=== PATIENT | female | born 1935 | race Caucasian/White ===

== ENCOUNTER 2017-05-12 15:10 | Inpatient (IN) | payer OTHER ==
[~2017-05-12] VITALS: Ht 154.9 cm; Wt 54.4 kg
[~2017-05-12 15:10] MED LIST: ATENOLOL50 MG PO; ATORVASTATIN CA20 MG PO; COMBIGAN EYE DRO5 ML; ESIDRIX25 MG PO; FISH OIL PO; LISINOPRIL PO; METFORMIN HCL500 MG PO; MULTIVITAMIN PO; PLAVIX75 MG PO; SIMVASTATIN40 MG PO; ZOLPIDEM TARTRA10 MG PO; latanoprost; plavix
[2017-05-12] MEDS ORDERED: SODIUM CHLORIDE 0.9% 1000ML 2,000 ML IV STA (15:28)
[2017-05-12] MEDS ORDERED: ONDANSETRON HCL INJ 2 MG/ML VIAL IV STA (15:28)
[2017-05-12] MEDS ORDERED: LISINOPRIL2.5 MG PO (15:41)
[2017-05-12] MEDS ORDERED: ZETIA10 MG PO (15:41)
[2017-05-12] MEDS ORDERED: ESIDRIX25 MG PO (15:41)
[2017-05-12] MEDS ORDERED: GLIMEPIRIDE1 MG PO (15:41)
[2017-05-12] MEDS ORDERED: NIFEDIPINE ER30 M1 PO (15:41)
[2017-05-12] MEDS ORDERED: PANTOPRAZOLE SO40 MG PO (15:41)
[2017-05-12 16:12] LABS: BASOPHILS % 0.1 % (0.0-1.0); LYMPHOCYTES # (AUTO) 0.9 (1.0-3.2); LYMPHOCYTES % 8.5 % (18.0-39.1); MEAN CORPUSCULAR HEMOGLOBIN 25.2 pg (28-32); MEAN CORPUSCULAR HGB CONC 31.7 g/dL (31-35); MEAN CORPUSCULAR VOLUME 79.7 fL (81-99); MONOCYTES # (AUTO) 0.5 (0.2-0.8); MONOCYTES % 4.7 % (4.4-11.3); NEUTROPHILS # (AUTO) 8.8 (2.1-6.9); NEUTROPHILS % 86.2 % (38.7-80.0); PLATELET COUNT 401 x10e3/uL (140-360); RED BLOOD COUNT 2.02 x10e6/uL (3.6-5.1); RED CELL DISTRIBUTION WIDTH 16.9 % (11.7-14.4)
[2017-05-12 16:15] LABS: HEMATOCRIT 16.1 % (34.2-44.1); HEMOGLOBIN 5.1 g/dL (12.0-16.0)
[2017-05-12 16:19] LABS: INR 0.99; PROTHROMBIN TIME 13.6 seconds (11.9-14.5)
[2017-05-12] MEDS ORDERED: SODIUM CHLORIDE 0.9% 250ML 250 ML IV ONE (16:30)
[2017-05-12 16:34] LABS: ALBUMIN 3.2 g/dL (3.5-5.0); ALBUMIN/GLOBULIN RATIO 1.3 (0.8-2.0); ANION GAP 15.3 mmol/L (8-16); CALCIUM 8.2 mg/dL (8.4-10.2); CREATININE, SERUM 2.08 mg/dL (0.57-1.11); POTASSIUM 3.3 mmol/L (3.5-5.1)
[2017-05-12] MEDS ORDERED: OCTREOTIDE ACETATE 500 MCG in SODIUM CHLORIDE 0.9% 500ML 1 ML IV SCH (17:00)
--- NOTE | 2017-05-12 17:14 | Diagnostic Imaging Report ---
PROCEDURE: A single AP view of the chest. COMPARISON: 02/10/16 INDICATIONS: COUGH, GI BLEED FINDINGS: Lines/tubes: None. Lungs: Hyperinflated lungs with flattening of the diaphragms. Central vascular congestion and mild interstitial edema. Pleura: There is no significant pleural effusion or pneumothorax. Aorta is calcified. Heart and mediastinum: The heart and the mediastinum are unremarkable. Bones: No acute bony abnormality. IMPRESSION: Hyperinflated lungs with flattening of the diaphragms, suggestive of COPD. Central vascular congestion and mild interstitial edema. No definite focal consolation. Dictated by: Steven Mcgowan M.D. on 05/12/2017 at 17:23 Electronically approved by: Steven Mcgowan M.D. on 05/12/2017 at 17:23
[2017-05-12] MEDS: PANTOPRAZOL 40MG/SOD CHL 0.9% 50 ML IV SCH (18:00)
[2017-05-12] MEDS: OCTREOTIDE ACETATE 500 MCG in SODIUM CHLORIDE 0.9% 250ML 250 ML IV SCH (18:13)
[2017-05-12] MEDS: FUROSEMIDE INJ 10 MG/ML 4 ML VIAL IV PRN ×2 (19:40→22:16)
[2017-05-12] MEDS ORDERED: SODIUM CHLORIDE 0.9% 250ML 250 ML ONE (19:48)
[2017-05-13] VITALS (55 sets, daily range): BP systolic 118–185; BP diastolic 54–111
[2017-05-13] MEDS: FUROSEMIDE INJ 10 MG/ML 4 ML VIAL IV PRN (01:00)
[2017-05-13] MEDS: PANTOPRAZOL 40MG/SOD CHL 0.9% 50 ML IV SCH ×5 (01:36→18:04)
[2017-05-13] MEDS: SODIUM CHLORIDE 0.9% 1000ML 1,000 ML IV SCH ×5 (01:36→23:44)
[2017-05-13] MEDS: OCTREOTIDE ACETATE 500 MCG in SODIUM CHLORIDE 0.9% 250ML 250 ML IV SCH (03:53)
[2017-05-13] MEDS: LABETALOL HCL IV 5 MG/ML 20ML MDV IV SCH ×3 (05:36→18:04)
[2017-05-13] MEDS: ACETAMINOPHEN 1000 MG/100 ML IV PRN ×2 (05:37→12:18)
[2017-05-13 06:00] LABS: BASOPHILS % 0.4 % (0.0-1.0); EOSINOPHILS % 0.1 % (0.0-6.0); HEMATOCRIT 31.6 % (34.2-44.1); HEMOGLOBIN 10.8 g/dL (12.0-16.0); LYMPHOCYTES # (AUTO) 0.8 (1.0-3.2); LYMPHOCYTES % 11.6 % (18.0-39.1); MEAN CORPUSCULAR HEMOGLOBIN 26.8 pg (28-32); MEAN CORPUSCULAR HGB CONC 34.2 g/dL (31-35); MEAN CORPUSCULAR VOLUME 78.4 fL (81-99); MONOCYTES # (AUTO) 0.5 (0.2-0.8); MONOCYTES % 7.3 % (4.4-11.3); NEUTROPHILS # (AUTO) 5.7 (2.1-6.9); NEUTROPHILS % 80.2 % (38.7-80.0); PLATELET COUNT 328 x10e3/uL (140-360); RED BLOOD COUNT 4.03 x10e6/uL (3.6-5.1); RED CELL DISTRIBUTION WIDTH 16.5 % (11.7-14.4)
[2017-05-13 06:24] LABS: ALBUMIN 3.5 g/dL (3.5-5.0); ALBUMIN/GLOBULIN RATIO 1.3 (0.8-2.0); ANION GAP 15.1 mmol/L (8-16); CALCIUM 8.4 mg/dL (8.4-10.2); CREATININE, SERUM 1.78 mg/dL (0.57-1.11); POTASSIUM 3.1 mmol/L (3.5-5.1)
[2017-05-13 06:33] LABS: CREATINE KINASE MB 4.5 ng/mL (0.00-5.00)
--- NOTE | 2017-05-13 06:55 | Consultation ---
DATE OF CONSULTATION: May 13, 2017 This is an 82 year old who presented to the hospital last night because of problems with bleeding with black tarry stool. The patient denies any abdominal pain along with this problem. She denies any nausea, vomiting or diarrhea along with this problem also. She apparently had some episodes a long time ago, and had colonoscopy at the time. She denies any history of ulcer disease. Other medical problems are significant for history of peripheral vascular disease for which she has been on anticoagulation with Plavix. Also, history of hypertension, history of diabetes. MEDICATIONS: At home include Plavix, Zetia, glimepiride, hydrochlorothiazide, lisinopril, nifedipine, Pantoprazole. SOCIAL HISTORY: No alcohol use. FAMILY HISTORY: Noncontributory. REVIEW OF SYSTEMS: Denies any chest pain or shortness of breath. Denies any dysphagia or odynophagia. Denies any dysuria, hematuria or any kind of syncopal episode. PHYSICAL EXAMINATION GENERAL: Patient is awake, alert and appears to be stable. Not in acute distress at this point. VITAL SIGNS: Afebrile currently with stable vital signs. HEENT: Normocephalic. Anicteric sclerae. NECK: Supple. Alert times 3. CHEST: Lungs clear. ABDOMEN: Soft. There is no distention at this point. It is nontender. EXTREMITIES: No clubbing or cyanosis. LAB VALUES: Significant for hemoglobin of 5.1 on admission. This is up to 10.8. WBC of 7.1. BUN of 38, creatinine 2.08 on admission. IMPRESSION 1. Gastrointestinal bleed with black tarry stool and significant anemia. 2. History of peripheral vascular disease. 3. History of diabetes. 4. History of hypertension. RECOMMENDATIONS: Continue current care this point. Proton pump inhibitor and rosuvastatin. We will proceed with EGD for further evaluation today. Follow labs clinically. Job#: [id number] RI cc:RADHA THORNTON MD
[2017-05-13] MEDS ORDERED: ZOLPIDEM TARTRATE 5 MG TAB PO PRN (09:00)
[2017-05-13 14:32] LABS: CREATINE KINASE MB 3.3 ng/mL (0.00-5.00)
[2017-05-13 15:20] LABS: HEMATOCRIT 27.5 % (34.2-44.1); HEMOGLOBIN 9.3 g/dL (12.0-16.0)
[2017-05-13] MEDS ORDERED: PROPOFOL IV EMULSION 10 MG/ML 50 ML VIAL ONE (19:53)
[2017-05-13] MEDS ORDERED: LIDOCAINE HCL 2% LOCAL INJ 5 ML SDV VIAL INJ ONE (19:53)
[2017-05-13] MEDS: TEMAZEPAM 15 MG CAP PO SCH (21:01)
[2017-05-13 22:36] LABS: HEMATOCRIT 27.5 % (34.2-44.1); HEMOGLOBIN 9.2 g/dL (12.0-16.0)
[2017-05-14] VITALS (44 sets, daily range): BP systolic 106–192; BP diastolic 59–97
[2017-05-14] MEDS ORDERED: PANTOPRAZOL 40MG/SOD CHL 0.9% 50 ML IV ONE ×2 (00:10→03:56)
[2017-05-14] MEDS: LABETALOL HCL IV 5 MG/ML 20ML MDV IV SCH ×4 (00:23→18:00)
[2017-05-14] MEDS: PANTOPRAZOL 40MG/SOD CHL 0.9% 50 ML IV SCH (00:27)
[2017-05-14 06:09] LABS: BASOPHILS % 0.7 % (0.0-1.0); EOSINOPHILS # (AUTO) 0.2 (0.0-0.4); HEMATOCRIT 27.4 % (34.2-44.1); HEMOGLOBIN 8.9 g/dL (12.0-16.0); LYMPHOCYTES # (AUTO) 0.9 (1.0-3.2); LYMPHOCYTES % 14.1 % (18.0-39.1); MEAN CORPUSCULAR HEMOGLOBIN 26.5 pg (28-32); MEAN CORPUSCULAR HGB CONC 32.5 g/dL (31-35); MEAN CORPUSCULAR VOLUME 81.5 fL (81-99); MONOCYTES # (AUTO) 0.5 (0.2-0.8); MONOCYTES % 7.4 % (4.4-11.3); NEUTROPHILS # (AUTO) 4.5 (2.1-6.9); NEUTROPHILS % 74.5 % (38.7-80.0); PLATELET COUNT 300 x10e3/uL (140-360); RED BLOOD COUNT 3.36 x10e6/uL (3.6-5.1)
[2017-05-14] MEDS ORDERED: BISACODYL 5 MG TAB EC PO ONE (08:15)
[2017-05-14] MEDS ORDERED: PEG (High)/E-LYTE SOLN 4,000 ML BTL PO ONE (08:15)
[2017-05-14] MEDS ORDERED: DEXTROSE 50% SYRINGE 50 ML IV PRN (08:45)
[2017-05-14] MEDS: SODIUM CHLORIDE 0.9% 1000ML 1,000 ML IV SCH ×2 (08:48→19:53)
[2017-05-14] MEDS: PANTOPRAZOLE 40 MG 10ML VIAL IV SCH ×2 (09:00→17:08)
--- NOTE | 2017-05-14 09:10 | History and Physical ---
PRIMARY CARE PROVIDER: Dr. Ankit Yoder YARD HOSTLER: Dr. Ten Puga CHIEF COMPLAINT: Acute blood loss anemia with blood transfusion. An 82-year-old female who came to the hospital severely anemic and increasing shortness of breath. Her hemoglobin and hematocrit was 5.1 and 16.1 respectively. The patient is status post 3 units of blood transfusion. She underwent upper endoscopy. Findings revealed gastritis. There was no acute bleeding. The patient is pending for colonoscopy. She is otherwise stable. PAST MEDICAL HISTORY: Hypertension, peripheral vascular disease, status post left BKA, reflux, on Plavix, hyperlipidemia, diabetes, type 2. PAST SURGICAL HISTORY: Left BKA, right carotid endarterectomy, history of hemorrhoidectomy, appendectomy. SOCIAL HISTORY: Patient does not smoke or use alcohol. No regular drugs. ALLERGIES: NO KNOWN ALLERGIES. HOME MEDICATIONS: Plavix, Zetia, hydrochlorothiazide, lisinopril, nifedipine, Protonix, Amaryl. REVIEW OF SYSTEMS: Generalized weakness. PHYSICAL EXAMINATION VITAL SIGNS: Temperature is 98, blood pressure 144/65, pulse rate 70, respirations 18. GENERAL: Patient is not in acute distress. HEENT: Normocephalic, atraumatic and anicteric. NECK: Supple grossly. PULMONARY: Diminished breath sounds. CARDIOVASCULAR: Regular rate and rhythm. ABDOMEN: Soft. EXTREMITIES: Left BKA. NEUROLOGIC: No focal deficit. LABORATORY: Sodium 137, potassium 3.1, chloride 99, bicarb 26, BUN 31, creatinine 1.7, glucose 124. WBC 6, hemoglobin 8.9, hematocrit 27, and platelets is 300,000. IMPRESSION 1. Idafj-zz-bqldypu gastrointestinal bleed. 2. Symptomatic anemia. 3. Status post blood transfusion. 4. Fecal occult blood is positive. PLAN: EGD done. Colonoscopy is pending. Continue to monitor the patient closely. Correct electrolytes. The patient will need iron infusion. Job#: [id number] TOMASZ
[2017-05-14] MEDS: HYDRALAZINE HCL 20 MG/ML VIAL IV PRN (10:12)
[2017-05-14] MEDS: INSULIN LISPRO 100 UNIT/1 ML 3ML VIAL SQ SCH ×3 (11:30→20:47)
[2017-05-14 12:52] LABS: HEMATOCRIT 30.4 % (34.2-44.1)
[2017-05-14 18:08] LABS: HEMATOCRIT 27.8 % (34.2-44.1); HEMOGLOBIN 9.2 g/dL (12.0-16.0)
[2017-05-14] MEDS: TEMAZEPAM 15 MG CAP PO SCH (23:24)
[2017-05-15] VITALS (8 sets, daily range): BP systolic 136–173; BP diastolic 61–79
[2017-05-15 00:41] LABS: HEMATOCRIT 24.1 % (34.2-44.1)
[2017-05-15] MEDS: LABETALOL HCL IV 5 MG/ML 20ML MDV IV SCH ×4 (01:02→17:19)
[2017-05-15] MEDS: INSULIN LISPRO 100 UNIT/1 ML 3ML VIAL SQ SCH ×4 (07:30→21:59)
[2017-05-15 07:31] LABS: BASOPHILS % 0.5 % (0.0-1.0); EOSINOPHILS # (AUTO) 0.2 (0.0-0.4); EOSINOPHILS % 3.3 % (0.0-6.0); HEMATOCRIT 25.9 % (34.2-44.1); HEMOGLOBIN 8.5 g/dL (12.0-16.0); LYMPHOCYTES # (AUTO) 0.9 (1.0-3.2); LYMPHOCYTES % 13.7 % (18.0-39.1); MEAN CORPUSCULAR HGB CONC 32.8 g/dL (31-35); MEAN CORPUSCULAR VOLUME 82.2 fL (81-99); MONOCYTES # (AUTO) 0.4 (0.2-0.8); MONOCYTES % 6.8 % (4.4-11.3); NEUTROPHILS # (AUTO) 4.8 (2.1-6.9); NEUTROPHILS % 74.9 % (38.7-80.0); PLATELET COUNT 289 x10e3/uL (140-360); RED BLOOD COUNT 3.15 x10e6/uL (3.6-5.1); RED CELL DISTRIBUTION WIDTH 17.5 % (11.7-14.4)
[2017-05-15 07:46] LABS: ANION GAP 10.8 mmol/L (8-16); CALCIUM 7.5 mg/dL (8.4-10.2); CREATININE, SERUM 1.01 mg/dL (0.57-1.11); MAGNESIUM 1.2 MG/DL (1.3-2.1); PHOSPHORUS 2.4 MG/DL (2.3-4.7)
[2017-05-15 07:48] LABS: POTASSIUM 2.8 mmol/L (3.5-5.1)
[2017-05-15 08:06] LABS: THYROID STIMULATING HORMONE 1.719 uIU/mL (0.350-4.940)
[2017-05-15] MEDS ORDERED: SOD CHL 0.45%/POT CHL 20MEQ 1,000 ML IV SCH (08:45)
[2017-05-15] MEDS ORDERED: POTASSIUM CHLORIDE 10 MEQ TABCR PO ONE (08:45)
[2017-05-15] MEDS: PANTOPRAZOLE 40 MG 10ML VIAL IV SCH ×2 (08:58→17:19)
[2017-05-15] MEDS: HYDRALAZINE HCL 20 MG/ML VIAL IV PRN (08:59)
[2017-05-15] MEDS: POTASSIUM CHL 40 MEQ in SODIUM CHLORIDE 0.45% 1,000 ML IV SCH ×2 (10:23→19:27)
[2017-05-15 12:20] LABS: HEMATOCRIT 27.8 % (34.2-44.1); HEMOGLOBIN 9.1 g/dL (12.0-16.0)
[2017-05-15 12:35] LABS: ANION GAP 15.5 mmol/L (8-16); CALCIUM 7.8 mg/dL (8.4-10.2); CREATININE, SERUM 0.98 mg/dL (0.57-1.11); POTASSIUM 3.5 mmol/L (3.5-5.1)
[2017-05-15] MEDS ORDERED: MINERAL OIL 132 ML BTL PR PRN (12:45)
[2017-05-15] MEDS ORDERED: MAGNESIUM SULFATE 2GM/50ML 50 ML IV ONE (13:30)
[2017-05-15] MEDS ORDERED: PROPOFOL IV EMULSION 10 MG/ML 20 ML VIAL ONE (18:13)
[2017-05-15] MEDS: TEMAZEPAM 15 MG CAP PO SCH (21:53)
[2017-05-15 22:35] LABS: HEMATOCRIT 25.7 % (34.2-44.1); HEMOGLOBIN 8.4 g/dL (12.0-16.0)
[2017-05-16] VITALS (8 sets, daily range): BP systolic 149–186; BP diastolic 72–98
[2017-05-16] MEDS: LABETALOL HCL IV 5 MG/ML 20ML MDV IV SCH ×3 (00:58→12:52)
[2017-05-16] MEDS: POTASSIUM CHL 40 MEQ in SODIUM CHLORIDE 0.45% 1,000 ML IV SCH (05:39)
[2017-05-16] MEDS: INSULIN LISPRO 100 UNIT/1 ML 3ML VIAL SQ SCH ×4 (07:30→21:50)
[2017-05-16 07:50] LABS: BASOPHILS % 0.3 % (0.0-1.0); EOSINOPHILS # (AUTO) 0.3 (0.0-0.4); EOSINOPHILS % 3.1 % (0.0-6.0); HEMATOCRIT 28.4 % (34.2-44.1); HEMOGLOBIN 9.3 g/dL (12.0-16.0); LYMPHOCYTES # (AUTO) 0.7 (1.0-3.2); LYMPHOCYTES % 6.8 % (18.0-39.1); MEAN CORPUSCULAR HGB CONC 32.7 g/dL (31-35); MEAN CORPUSCULAR VOLUME 82.3 fL (81-99); MONOCYTES # (AUTO) 0.4 (0.2-0.8); MONOCYTES % 4.6 % (4.4-11.3); NEUTROPHILS # (AUTO) 8.2 (2.1-6.9); NEUTROPHILS % 84.7 % (38.7-80.0); PLATELET COUNT 320 x10e3/uL (140-360); RED BLOOD COUNT 3.45 x10e6/uL (3.6-5.1); RED CELL DISTRIBUTION WIDTH 17.6 % (11.7-14.4)
[2017-05-16 08:20] LABS: ANION GAP 12.9 mmol/L (8-16); CALCIUM 8.3 mg/dL (8.4-10.2); CREATININE, SERUM 1.1 mg/dL (0.57-1.11); MAGNESIUM 1.6 MG/DL (1.3-2.1); PHOSPHORUS 2.8 MG/DL (2.3-4.7); POTASSIUM 3.9 mmol/L (3.5-5.1)
[2017-05-16] MEDS: PANTOPRAZOLE 40 MG 10ML VIAL IV SCH (08:52)
[2017-05-16] MEDS: HYDRALAZINE HCL 20 MG/ML VIAL IV PRN ×2 (09:01→21:49)
[2017-05-16] MEDS ORDERED: POTASSIUM CHLORIDE 20 MEQ TAB CR PO STA (09:04)
[2017-05-16] MEDS ORDERED: FUROSEMIDE INJ 10 MG/ML 4 ML VIAL IV STA (09:04)
[2017-05-16] MEDS ORDERED: FUROSEMIDE INJ 10 MG/ML 4 ML VIAL IV NR (15:30)
[2017-05-16] MEDS: SUCRALFATE 1 GM/10 ML SUSP NG SCH ×3 (16:09→21:44)
[2017-05-16] MEDS ORDERED: POTASSIUM CHLORIDE 10 MEQ TABCR PO NR (16:30)
[2017-05-16] MEDS: TEMAZEPAM 15 MG CAP PO SCH (21:44)
[2017-05-17] VITALS (9 sets, daily range): BP systolic 115–184; BP diastolic 56–89
[2017-05-17] MEDS: INSULIN LISPRO 100 UNIT/1 ML 3ML VIAL SQ SCH ×4 (07:30→21:00)
[2017-05-17] MEDS: SUCRALFATE 1 GM/10 ML SUSP NG SCH ×3 (07:36→16:12)
[2017-05-17] MEDS: PANTOPRAZOLE SOD 40 MG TABEC PO SCH (07:36)
[2017-05-17] MEDS: HYDRALAZINE HCL 20 MG/ML VIAL IV PRN (08:10)
[2017-05-17 08:18] LABS: BASOPHILS % 0.3 % (0.0-1.0); EOSINOPHILS # (AUTO) 0.4 (0.0-0.4); EOSINOPHILS % 4.8 % (0.0-6.0); HEMATOCRIT 30.5 % (34.2-44.1); HEMOGLOBIN 9.9 g/dL (12.0-16.0); LYMPHOCYTES # (AUTO) 0.9 (1.0-3.2); LYMPHOCYTES % 11.6 % (18.0-39.1); MEAN CORPUSCULAR HEMOGLOBIN 26.8 pg (28-32); MEAN CORPUSCULAR HGB CONC 32.5 g/dL (31-35); MEAN CORPUSCULAR VOLUME 82.4 fL (81-99); MONOCYTES # (AUTO) 0.5 (0.2-0.8); MONOCYTES % 6.9 % (4.4-11.3); NEUTROPHILS # (AUTO) 5.7 (2.1-6.9); PLATELET COUNT 375 x10e3/uL (140-360); RED CELL DISTRIBUTION WIDTH 17.8 % (11.7-14.4)
[2017-05-17 08:39] LABS: ANION GAP 10.9 mmol/L (8-16); CALCIUM 8.6 mg/dL (8.4-10.2); CREATININE, SERUM 1.25 mg/dL (0.57-1.11); POTASSIUM 3.9 mmol/L (3.5-5.1)
[2017-05-17] MEDS ORDERED: POTASSIUM CHLORIDE 20 MEQ TAB CR PO SCH (09:00)
[2017-05-17] MEDS: POTASSIUM CHLORIDE 10 MEQ TABCR PO SCH (09:47)
[2017-05-17] MEDS: FUROSEMIDE 40 MG TAB PO SCH (09:47)
[2017-05-17] MEDS: LEVALBUTEROL HCL SOLN NEBU 1.25 MG/3 ML NEB INH PRN ×3 (11:00→19:30)
--- NOTE | 2017-05-17 11:11 | Diagnostic Imaging Report ---
EXAMINATION: Chest, CHEST SINGLE (PORTABLE) INDICATION: Chest pain COMPARISON: Portable chest 05/12/2017 FINDINGS: LINES: None. Heart: Normal cardiac silhouette. Vascular: The pulmonary vasculature is within normal limits. Atherosclerotic calcifications of the aortic arch. Mediastinum: No mediastinal, hilar, or axillary mass or lymphadenopathy. Lungs: No parenchymal mass. No focal consolidation. The lungs are hyperexpanded bilaterally. Pleura: Small bilateral pleural effusions. No pneumothorax. Bones: No acute osseous abnormality. Degenerative changes of the thoracic spine. Soft tissues: Normal. Impression: Small bilateral pleural effusions. Emphysematous changes. Signed by: Dr. Paresh Rae M.D. on 05/17/2017 11:08 AM
[2017-05-17] MEDS: NIFEDIPINE CR 30 MG TAB PO SCH (12:32)
[2017-05-17] MEDS: PREDNISONE 20 MG TAB PO SCH (12:33)
[2017-05-17] MEDS: FUROSEMIDE INJ 10 MG/ML 4 ML VIAL IV SCH ×2 (14:31→21:29)
[2017-05-17] MEDS: SUCRALFATE 1 GM/10 ML SUSP PO SCH ×2 (19:12→21:29)
[2017-05-17] MEDS: EZETIMIBE 10 MG TAB PO SCH (21:29)
[2017-05-17] MEDS: TEMAZEPAM 15 MG CAP PO SCH (21:29)
[2017-05-18] VITALS: BP 124/58
[2017-05-18 04:00] VITALS: BP 142/69
[2017-05-18] MEDS: FUROSEMIDE INJ 10 MG/ML 4 ML VIAL IV SCH (05:57)
[2017-05-18 06:10] LABS: BASOPHILS % 0.3 % (0.0-1.0); EOSINOPHILS % 0.3 % (0.0-6.0); HEMATOCRIT 29.5 % (34.2-44.1); HEMOGLOBIN 9.7 g/dL (12.0-16.0); LYMPHOCYTES # (AUTO) 0.9 (1.0-3.2); LYMPHOCYTES % 12.5 % (18.0-39.1); MEAN CORPUSCULAR HEMOGLOBIN 26.6 pg (28-32); MEAN CORPUSCULAR HGB CONC 32.9 g/dL (31-35); MONOCYTES # (AUTO) 0.6 (0.2-0.8); MONOCYTES % 8.7 % (4.4-11.3); NEUTROPHILS # (AUTO) 5.5 (2.1-6.9); NEUTROPHILS % 77.8 % (38.7-80.0); PLATELET COUNT 352 x10e3/uL (140-360); RED BLOOD COUNT 3.64 x10e6/uL (3.6-5.1); RED CELL DISTRIBUTION WIDTH 17.9 % (11.7-14.4)
[2017-05-18 06:37] LABS: ANION GAP 13.2 mmol/L (8-16); CALCIUM 8.6 mg/dL (8.4-10.2); CREATININE, SERUM 1.46 mg/dL (0.57-1.11); MAGNESIUM 1.2 MG/DL (1.3-2.1); POTASSIUM 3.2 mmol/L (3.5-5.1)
[2017-05-18] MEDS: INSULIN LISPRO 100 UNIT/1 ML 3ML VIAL SQ SCH ×4 (07:30→20:26)
[2017-05-18 08:00] VITALS: BP 112/75
[2017-05-18] MEDS: PREDNISONE 20 MG TAB PO SCH (08:26)
[2017-05-18] MEDS: SUCRALFATE 1 GM/10 ML SUSP PO SCH ×4 (08:26→20:26)
[2017-05-18] MEDS: FUROSEMIDE 40 MG TAB PO SCH ×2 (08:26→15:43)
[2017-05-18] MEDS: POTASSIUM CHLORIDE 10 MEQ TABCR PO SCH (08:26)
[2017-05-18] MEDS: PANTOPRAZOLE SOD 40 MG TABEC PO SCH (08:26)
[2017-05-18] MEDS: NIFEDIPINE CR 30 MG TAB PO SCH (09:00)
[2017-05-18] MEDS ORDERED: MAGNESIUM SULFATE 2GM/50ML 50 ML IV ONE (11:00)
[2017-05-18] MEDS ORDERED: POTASSIUM CHLORIDE 10 MEQ TABCR PO ONE (11:15)
[2017-05-18 12:00] VITALS: BP 140/81
[2017-05-18 16:00] VITALS: BP 108/70
[2017-05-18 20:00] VITALS: BP 132/77
[2017-05-18] MEDS: TEMAZEPAM 15 MG CAP PO SCH (20:26)
[2017-05-18] MEDS: EZETIMIBE 10 MG TAB PO SCH (20:26)
[2017-05-19] VITALS: BP 141/78
[2017-05-19 04:00] VITALS: BP 144/86
[2017-05-19 07:05] LABS: BASOPHILS % 0.4 % (0.0-1.0); EOSINOPHILS # (AUTO) 0.1 (0.0-0.4); EOSINOPHILS % 0.8 % (0.0-6.0); HEMOGLOBIN 10.2 g/dL (12.0-16.0); LYMPHOCYTES # (AUTO) 1.2 (1.0-3.2); LYMPHOCYTES % 10.5 % (18.0-39.1); MEAN CORPUSCULAR HEMOGLOBIN 26.8 pg (28-32); MEAN CORPUSCULAR HGB CONC 32.9 g/dL (31-35); MEAN CORPUSCULAR VOLUME 81.6 fL (81-99); MONOCYTES # (AUTO) 0.9 (0.2-0.8); NEUTROPHILS # (AUTO) 8.8 (2.1-6.9); NEUTROPHILS % 79.6 % (38.7-80.0); PLATELET COUNT 363 x10e3/uL (140-360)
[2017-05-19 07:29] LABS: ANION GAP 14.1 mmol/L (8-16); CALCIUM 9.1 mg/dL (8.4-10.2); CREATININE, SERUM 1.46 mg/dL (0.57-1.11); MAGNESIUM 1.7 MG/DL (1.3-2.1); POTASSIUM 3.1 mmol/L (3.5-5.1)
[2017-05-19 07:30] VITALS: BP 140/64
[2017-05-19] MEDS: INSULIN LISPRO 100 UNIT/1 ML 3ML VIAL SQ SCH ×2 (07:30→11:30)
[2017-05-19] MEDS: SUCRALFATE 1 GM/10 ML SUSP PO SCH ×2 (07:59→11:40)
[2017-05-19] MEDS: PANTOPRAZOLE SOD 40 MG TABEC PO SCH (07:59)
[2017-05-19 08:00] VITALS: BP 140/64
[2017-05-19] MEDS: POTASSIUM CHLORIDE 10 MEQ TABCR PO SCH (09:22)
[2017-05-19] MEDS: PREDNISONE 20 MG TAB PO SCH (09:23)
[2017-05-19] MEDS: FUROSEMIDE 40 MG TAB PO SCH (09:23)
[2017-05-19] MEDS: NIFEDIPINE CR 30 MG TAB PO SCH (09:23)
[2017-05-19] MEDS ORDERED: POTASSIUM CHLORIDE 20 MEQ TAB CR PO ONE (11:50)
[2017-05-19 12:00] VITALS: BP 142/81
--- NOTE | 2017-05-19 12:10 | Discharge Summary ---
FINAL DISCHARGE DIAGNOSES 1. Anemia, status post gastrointestinal bleed with status post colonoscopy performed. 2. Chronic obstructive pulmonary disease exacerbation. 3. Pulmonary edema. 4. Chronic smoker. CONSULTANTS: GI. VITAL SIGNS: Temperature is 96, pulse 81, respiratory rate is 18, blood pressure 140/64, pulse ox 96% on room air. LABORATORY DATA: Lab findings show white count 7, hemoglobin 10.2. On admission, her hemoglobin was 8.4, hematocrit was 31, platelets of 363. Coagulations were normal. Chemistry; sodium 137, potassium 3.1, chloride 93, bicarbonate 33, anion gap of 14, BUN is 32, creatinine is 1.5. Rest of the labs are normal. Occult blood was positive. MICROBIOLOGY: None. IMAGING STUDIES: Chest x-ray showed bilateral pleural effusions with emphysematous changes. HOSPITAL COURSE: An 82-year-old female who came into the ED after found to be severely anemic with a hemoglobin of 5.1. Patient required blood transfusion while she was in the hospital. GI was consulted while in the hospital. Apparently, the patient had a prior EGD that showed evidence of gastritis on a prior admission at another hospital. Here, patient had colonoscopy performed. Patient needs to follow up outpatient with GI for biopsy reports and pathology. Patient verbalized understanding to followup accordingly. Colonoscopy findings show some diverticula and multiple polyps, which were snared and needs to be evaluated as an outpatient in terms of pathology. Patient reported she will follow up accordingly. Patient also has some shortness of breath, was treated for underlying acute exacerbation of COPD. Imaging studies were consistent with pulmonary edema, given some IV diuretics with much improvement. She was also started on steroids, neb treatments, and antibiotics. Patient was advised to follow up with a emergency dispatcher as an outpatient. On discharge, her hemoglobin was much improved at 10.2 prior to discharge home. On the day of discharge, vital signs are stable, labs remained stable. Patient seen, evaluated, and examined thoroughly on the day of discharge with no other complaints. Patient verbalized understanding and agrees to plan of care to follow up as an outpatient with her primary care physician as well as GI for pathology reports. DISCHARGE MEDICATIONS: See med reconciliation form including; 1. Prednisone 20 mg 1 tab p.o. q. daily times 5 days. 2. Lasix 40 mg 1 tab q. daily, quantity 30. 3. Doxycycline 100 mg 1 tab p.o. b.i.d. times 7 days. 4. Protonix 40 mg 1 tab p.o. b.i.d. times 1 month supply. 5. She also is recommended having potassium supplements at 20 mEq daily. DISPOSITION: To home. CONDITION: Stable. FOLLOWUP: Follow up with her primary care physician in 1 week as well as GI for pathology reports in the next 1-2 weeks. In the event of any worsening symptoms, patient advised to come back to the ED for further evaluation. Discharge summary took greater than 35 minutes. MARNIE CAT MD Job#: [id number] PAT
[2017-05-19] MEDS ORDERED: PREDNISONE20 MG (13:33)
[2017-05-19] MEDS ORDERED: LASIX40 MG PO (13:33)
[2017-05-19] MEDS ORDERED: DOXYCYCLINE HY100 MG PO (13:35)
[2017-05-19] MEDS ORDERED: PROTONIX40 MG PO (13:36)
== END 2017-05-19 14:02 | disposition home or self-care (01) | DRG 378 ==
LOC: ER 15:10 → ERHOLD 18:09 → ICU 23:10 → MED/SURG3 05-14 23:05
PROVIDERS: ADMIT Internal Medicine; ATTEND Internal Medicine
PROC: 02HV33Z Insertion of Infusion Device into Superior Vena Cava, Percutaneous Approach (ICD-10-PCS; 2017-05-12)
PROC: 30250N1 (ICD-10-PCS; 2017-05-13)
PROC: 0DB68ZX Excision of Stomach, Via Natural or Artificial Opening Endoscopic, Diagnostic (ICD-10-PCS; 2017-05-13)
PROC: 0DB78ZX Excision of Stomach, Pylorus, Via Natural or Artificial Opening Endoscopic, Diagnostic (ICD-10-PCS; 2017-05-13)
PROC: 0DBM8ZX Excision of Descending Colon, Via Natural or Artificial Opening Endoscopic, Diagnostic (ICD-10-PCS; principal; 2017-05-15 13:30)
DX: K92.1 Melena (principal); D62 Acute posthemorrhagic anemia; J81.1 Chronic pulmonary edema; J44.1 Chronic obstructive pulmonary disease with (acute) exacerbation; E11.9 Type 2 diabetes mellitus without complications; I95.1 Orthostatic hypotension; K20.9 Esophagitis, unspecified; F17.210 Nicotine dependence, cigarettes, uncomplicated; I73.9 Peripheral vascular disease, unspecified; Z79.4 Long term (current) use of insulin; Z89.512 Acquired absence of left leg below knee; K57.90 Diverticulosis of intestine, part unspecified, without perforation or abscess without bleeding; D12.5 Benign neoplasm of sigmoid colon; K64.9 Unspecified hemorrhoids
CPT/HCPCS: 36415; 36430; 36555; 43239; 45384; 45385; 71045; 80048; 80053; 82270; 82550; 82553; 82607; 82948; 83036; 83540; 83690; 83735; 84100; 84443; 84466; 84484; 85014; 85018; 85025; 85610; 85730; 86850; 86900; 86920; 88305; 88312; 93005; 94640; 96376; 99285; J0360; J1940; J2001; J2353; J3480; J7030; J7050; P9016

== ENCOUNTER 2017-05-20 13:20 | Observation (INO) | payer OTHER ==
[~2017-05-20] VITALS: Ht 154.9 cm; Wt 46.7 kg
[~2017-05-20 13:20] MED LIST changes: +DOXYCYCLINE HY100 MG PO; +GLIMEPIRIDE1 MG PO; +LASIX40 MG PO; +LISINOPRIL2.5 MG PO; +NIFEDIPINE ER30 M1 PO; +PANTOPRAZOLE SO40 MG PO; +PREDNISONE20 MG; +PROTONIX40 MG PO; +ZETIA10 MG PO
--- OUTSIDE RECORDS SUMMARY | 2017-05-20 13:24 | XMS REPORT ---
[facility] Address Unknown Phone Unavailable Care Team Providers Care Helper Coordinator Name Role Phone NORBERTO ANDREW Unavailable Unavailable Problems This patient has no known problems. Allergies, Adverse Reactions, Alerts This patient has no known allergies or adverse reactions. Medications This patient has no known medications. Results Test Description Test Time Test Comments Text Results Atomic Results Result Comments CHEST SINGLE (PORTABLE) [place] [address] Patient Name: CARIE HIGGINS MR #: [id number] : 1935 Age/Sex: 82/F Req #: [id number] Adm Physician: NORBERTO ANDREW MD Ordered by: MARNIE CAT MD Report #: [id number] Location: MED/SURG3 Room/Bed: [facility] [place] ___ Procedure: [id number] DX/CHEST SINGLE (PORTABLE) Exam Date: 05/17/17 Exam Time: 1049 REPORT STATUS: Signed EXAMINATION: Chest, CHEST SINGLE (PORTABLE) INDICATION: Chest pain COMPARISON: Portable chest 05/12/2017 FINDINGS: LINES: None. Heart: Normal cardiac silhouette. Vascular: The pulmonary vasculature is within normal limits. Atherosclerotic calcifications of the aortic arch. Mediastinum: No mediastinal, hilar, or axillary mass or lymphadenopathy. Lungs: No parenchymal mass. No focal consolidation. The lungs are hyperexpanded bilaterally. Pleura: Small bilateral pleural effusions. No pneumothorax. Bones: No acute osseous abnormality. Degenerative changes of the thoracic spine. Soft tissues: Normal. Impression: Small bilateral pleural effusions. Emphysematous changes. Signed by: Dr. Norberto Lui M.D. on 05/17/2017 11:08 AM Dictated By: NORBERTO LUI MD 07 COPY TO: MARNIE CAT MD CHEST SINGLE (PORTABLE) [place] [address] Patient Name: CARIE HIGGINS MR #: [id number] : 1935 Age/Sex: 82/F Req #: [id number] Adm Physician: Ordered by: SHAYNE BRUCE MD Report #: [id number] Location: ER Room/Bed: Procedure: [id number] DX/CHEST SINGLE (PORTABLE) Exam Date: 05/12/17 Exam Time: 1640 REPORT STATUS: Signed PROCEDURE: A single AP view of the chest. COMPARISON: 02/10/16 INDICATIONS: COUGH, GI BLEED FINDINGS: Lines/tubes: None. Lungs: Hyperinflated lungs with flattening of the diaphragms. Central vascular congestion and mild interstitial edema. Pleura: There is no significant pleural effusion or pneumothorax. Aorta is calcified. Heart and mediastinum: The heart and the mediastinum are unremarkable. Bones: No acute bony abnormality. IMPRESSION: Hyperinflated lungs with flattening of the diaphragms, suggestive of COPD. Central vascular congestion and mild interstitial edema. No definite focal consolation. Dictated by: Steven Brown M.D. on 05/12/2017 at 17:23 Electronically approved by: Steven Brown M.D. on 05/12/2017 at 17:23 Dictated By: STEVEN BROWN MD 1723 COPY TO: SHAYNE BRUCE MD
--- OUTSIDE RECORDS SUMMARY | 2017-05-20 13:24 | XMS REPORT | Continuity of Care Document ---
Author Author [facility] Organization [facility] Address [address] [place] [address] Phone Unavailable Care Team Providers Care Commercial Electrician Name Role Phone RADHA THORNTON MD PCP Unavailable Insurance Providers Guarantor Kory Higgins Address [address] [place] [address] Email NONE Payer [facility] [employer] Policy Number [id number] Subscriber's Name Kory Higgins Relationship 18 Self / Same As Patient Group Number [id number] Group Name [employer] - Medicare Advantage Divis Effective Date 17 Advance Directives Directive Response Recorded Date/Time Does the patient have an advance directive? No 05/13/17 1:02am If yes, is advance directive on file with [facility]? No 05/13/17 1:02am If not on file with [facility] will patient provide a copy? No 05/13/17 1:02am Do you have a Directive to Physician? No 05/12/17 4:24pm Do you have a Medical Power of Brake Assembler? No 05/12/17 4:24pm Do you have an out of hospital Do Not Resuscitate Order? No 05/12/17 4:24pm Do you have any special needs we should be aware of? No 05/12/17 4:24pm Do you have a support person here with you today? Yes 05/12/17 4:24pm Did patient receive Notice of Privacy Practices? Yes 05/12/17 4:24pm Did patient receive patient rights and responsibilities? Yes 05/12/17 4:24pm Problems Medical Problem Onset Date Status Anemia Unknown Upper GI bleed Unknown Medications Current Home Medications Medication Dose Units Route Directions Days Qty Instructions Start Date Clopidogrel Bisulfate (Plavix) 75 Mg Tablet 75 Mg Oral M,W,F 30 Tab Doxycycline Hyclate 100 Mg Capsule 100 Mg Oral Twice A Day 7 Days Ezetimibe (Zetia) 10 Mg Tablet 10 Mg Oral Daily 30 Tab Furosemide (Lasix) 40 Mg Tablet 40 Mg Oral Daily 30 Tab Glimepiride 1 Mg Tablet 1 Mg Oral Daily Hydrochlorothiazide (Esidrix*) 25 Mg Tab 25 Mg Oral Daily Lisinopril 2.5 Mg Tablet 5 Mg Oral Daily 30 Tab Multivitamin Oral Daily Nifedipine (Nifedipine Er) 30 Mg Tab.er.24 60 Mg Oral Daily Pantoprazole Sodium (Protonix) 40 Mg Tablet.dr 40 Mg Oral Daily Pantoprazole Sodium (Protonix) 40 Mg Suspdr.pkt 40 Mg Oral Twice A Day 30 Tab Prednisone 20 Mg Tab 20 Mg Daily 5 Days Past Home Medications Medication Directions Ordered Status Atenolol 50 Mg Tablet, 50 Mg Oral Daily Discontinued Atorvastatin Calcium 20 Mg Tablet, 20 Mg Oral Daily Discontinued Brimonidine Tartrate (Combigan Eye Drops) 5 Ml Drpette, 1-2 Times Daily Discontinued Fish Oil , Oral Daily Discontinued Hydrochlorothiazide (Esidrix*) 25 Mg Tab, 25 Mg Oral Daily Discontinued Latanoprost , 1-2 Times Daily Discontinued Lisinopril , 40 Mg Oral Discontinued Metformin Hcl 500 Mg Tablet, 500 Mg Oral Daily Discontinued Plavix , 1-2 Times Daily Discontinued Simvastatin 40 Mg Tablet, 40 Mg Oral Today At 9:00PM Discontinued Zolpidem Tartrate 10 Mg Tablet, 10 Mg Oral Bedtime Discontinued Social History Social History Problem Response Recorded Date/Time Onset Date Status Hx Psychiatric Problems No 05/13/2017 1:02am Not Applicable Not Applicable Hx Eating Disorder No 05/13/2017 1:02am Not Applicable Not Applicable Hx Substance Use Disorder No 05/13/2017 1:02am Not Applicable Not Applicable Hx Depression No 05/13/2017 1:02am Not Applicable Not Applicable Hx Alcohol Use No 05/13/2017 1:02am Not Applicable Not Applicable Hx Substance Use Treatment No 05/13/2017 1:02am Not Applicable Not Applicable Hx Physical Abuse No 05/13/2017 1:02am Not Applicable Not Applicable Smoking Status Start Date Stop Date Former smoker Hospital Discharge Instructions No hospital discharge instruction information available. Plan of Care Discharge Date 05/19/17 2:02pm Disposition HOME, SELF-CARE Instructions/Education Provided GI Bleeding Prescriptions See Medication Section Additional Instructions/Education ACTIVITY TOLERATED GI SOFT DIET TOLERATED FOLLOW UP WITH YOUR PRIMARY CARE PHYSICIAN IN 1 WEEK FOLLOW UP WITH YOUR GASTROINTESTINAL DOCTOR IN 1 WEEK. Functional Status Query Response Date Recorded Ambulation Ability Independent May 13, 2017 1:19am Toileting Ability Moderate Assistance May 19, 2017 12:37pm Allergies, Adverse Reactions, Alerts Allergen Type Severity Reaction Status Last Updated No Known Drug Allergies Allergy Unknown Active 05/12/17 Immunizations No immunization information available. Vital Signs Acute Vital Signs Vital Response Date/Time Temperature (Fahrenheit) 97.4 degrees F (97.6 - 99.5) 05/19/2017 12:00pm Pulse Pulse Rate (adult) 98 bpm (60 - 90) 05/19/2017 12:00pm Respiratory Rate 18 bpm (12 - 24) 05/19/2017 12:00pm Blood Pressure 142/81 mm Hg 05/19/2017 12:00pm Height 5 ft 1 in 05/15/2017 12:00am Weight 120 lb 05/18/2017 6:01am Body Mass Index 22.7 kg/m^2 05/18/2017 6:01am Results Laboratory Results Test Name Result Units Flags Reference Collection Date/Time Result Date/ Time Comments White Blood Count 11.06 x10e3/uL # H 4.8-10.8 05/19/2017 6:00am 2017 8:14am Red Blood Count 3.80 x10e6/uL 3.6-5.1 05/19/2017 6:00am 05/19/2017 8: 14am Hemoglobin 10.2 g/dL L 12.0-16.0 05/19/2017 6:00am 05/19/2017 8:14am Hematocrit 31.0 % L 34.2-44.1 05/19/2017 6:00am 05/19/2017 8:14am Mean Corpuscular Volume 81.6 fL 81-99 05/19/2017 6:00am 05/19/2017 8: 14am Mean Corpuscular Hemoglobin 26.8 pg L 28-32 05/19/2017 6:00am 2017 8:14am Mean Corpuscular Hemoglobin Concent 32.9 g/dL 31-35 05/19/2017 6:00am 05/19/2017 8:14am Red Cell Distribution Width 18.0 % H 11.7-14.4 05/19/2017 6:00am 2017 8:14am Platelet Count 363 x10e3/uL H 140-360 05/19/2017 6:00am 05/19/2017 8: 14am Neutrophils (%) (Auto) 79.6 % 38.7-80.0 05/19/2017 6:00am 05/19/2017 8: 14am Lymphocytes (%) (Auto) 10.5 % L 18.0-39.1 05/19/2017 6:00am 05/19/2017 8 :14am Monocytes (%) (Auto) 8.0 % 4.4-11.3 05/19/2017 6:00am 05/19/2017 8: 14am Eosinophils (%) (Auto) 0.8 % 0.0-6.0 05/19/2017 6:00am 05/19/2017 8: 14am Basophils (%) (Auto) 0.4 % 0.0-1.0 05/19/2017 6:00am 05/19/2017 8:14am IM GRANULOCYTES % 0.7 % 0.0-1.0 05/19/2017 6:00am 05/19/2017 8:14am Neutrophils # (Auto) 8.8 H 2.1-6.9 05/19/2017 6:00am 05/19/2017 8: 14am Lymphocytes # (Auto) 1.2 1.0-3.2 05/19/2017 6:00am 05/19/2017 8:14am Monocytes # (Auto) 0.9 H 0.2-0.8 05/19/2017 6:00am 05/19/2017 8:14am Eosinophils # (Auto) 0.1 0.0-0.4 05/19/2017 6:00am 05/19/2017 8:14am Basophils # (Auto) 0.0 0.0-0.1 05/19/2017 6:00am 05/19/2017 8:14am Absolute Immature Granulocyte (auto 0.08 x10e3/uL 0-0.1 05/19/2017 6: 00am 05/19/2017 8:14am Prothrombin Time 13.6 seconds 11.9-14.5 05/12/2017 3:50pm 05/12/2017 4: 22pm Prothromb Time International Ratio 0.99 05/12/2017 3:50pm 2017 4:22pm Oral Anticoagulant Therapy INR Values: 1. Low Intensity Therapy 1.5 - 2.0 2. Moderate Intensity Therapy 2.0 - 3.0 3. High Intensity Therapy(1) 2.5 - 3.5 4. High Intensity Therapy(2) 3.0 - 4.0 5. Panic Value INR > 5.0 Activated Partial Thromboplast Time 24.0 seconds 23.8-35.5 05/12/2017 3: 50pm 05/12/2017 4:22pm Sodium Level 137 mmol/L 136-145 05/19/2017 6:00am 05/19/2017 7:37am Potassium Level 3.1 mmol/L L 3.5-5.1 05/19/2017 6:00am 05/19/2017 7: 37am Chloride Level 93 mmol/L L 98-107 05/19/2017 6:00am 05/19/2017 7:37am Carbon Dioxide Level 33 mmol/L H -05/19/2017 6:00am 05/19/2017 7: 37am Anion Gap 14.1 mmol/L 8-16 05/19/2017 6:00am 05/19/2017 7:37am Blood Urea Nitrogen 32 mg/dL # H 7-05/19/2017 6:00am 05/19/2017 7: 37am Creatinine 1.46 mg/dL H 0.57-1.11 05/19/2017 6:00am 05/19/2017 7:37am BUN/Creatinine Ratio 22 6-05/19/2017 6:00am 05/19/2017 7:37am Estimat Glomerular Filtration Rate 34 ML/MIN L 60- 05/19/2017 6:00am 08/2017 7:37am Ranges were taken from the National Kidney Disease Education Program and the National Kid[employer] Foundation literature. Reference ranges: 60 or greater: Normal 16-59 (for 3 consecutive months): Chronic kidney disease 15 or less: Kidney failure Glucose Level 103 mg/dL 74-118 05/19/2017 6:00am 05/19/2017 7:37am Calcium Level 9.1 mg/dL 8.4-10.2 05/19/2017 6:00am 05/19/2017 7:37am Bedside Glucose 156 mg/dL H 70-120 05/19/2017 11:11am 05/19/2017 12: 03pm Meter ID: [id number] Hemoglobin A1c Percent 5.4 % 4.0-7.0 05/15/2017 7:20am 05/15/2017 7: 45am Phosphorus Level 2.8 MG/DL 2.3-4.7 05/16/2017 7:00am 05/16/2017 8:24am Magnesium Level 1.7 MG/DL 1.3-2.1 05/19/2017 6:00am 05/19/2017 7:37am Iron Level 19 ug/dL L 50-170 05/15/2017 7:20am 05/15/2017 7:49am Total Iron Binding Capacity 295 ug/dL 261-478 05/15/2017 7:20am 2017 7:49am Percent Iron Saturation 6 % L 15-50 05/15/2017 7:20am 05/15/2017 7:49am Transferrin 211 mg/dL 180-382 05/15/2017 7:20am 05/15/2017 7:49am Total Bilirubin 1.6 mg/dL H 0.2-1.2 05/13/2017 5:40am 05/13/2017 6:26am Aspartate Amino Transf (AST/SGOT) 29 IU/L 5-34 05/13/2017 5:40am 2017 6:26am Alanine Aminotransferase (ALT/SGPT) 21 IU/L 0-55 05/13/2017 5:40am 6:26am Total Protein 6.2 g/dL L 6.5-8.1 05/13/2017 5:40am 05/13/2017 6:26am Albumin 3.5 g/dL 3.5-5.0 05/13/2017 5:40am 05/13/2017 6:26am Globulin 2.7 g/dL 2.3-3.5 05/13/2017 5:40am 05/13/2017 6:26am Albumin/Globulin Ratio 1.3 0.8-2.0 05/13/2017 5:40am 05/13/2017 6: 26am Alkaline Phosphatase 49 IU/L 40-150 05/13/2017 5:40am 05/13/2017 6: 26am Creatine Kinase 552 IU/L H 29-168 05/13/2017 12:00pm 05/13/2017 2:34pm Creatine Kinase MB 3.30 ng/mL 0.00-5.00 05/13/2017 12:00pm 05/13/2017 2 :34pm Troponin I 0.253 ng/mL 0-0.300 05/13/2017 12:00pm 05/13/2017 2:34pm Lipase 39 U/L 8-78 05/12/2017 3:50pm 05/12/2017 4:35pm Vitamin B12 Level 1186 pg/mL H 213-816 05/15/2017 7:20am 05/15/2017 8: 15am Thyroid Stimulating Hormone (TSH) 1.719 uIU/mL 0.350-4.940 05/15/2017 7: 20am 05/15/2017 8:11am Stool Occult Blood POSITIVE H NEGATIVE 05/12/2017 3:50pm 05/12/2017 4: 11pm Procedures Procedure Status Date Provider(s) EGD with biopsy Completed 05/13/17 SUSI TAYLOR MD Colonoscopy with polypectomy Completed 05/15/17 SUSI TAYLOR MD Colonoscopy with polypectomy Completed 05/15/17 SUSI TAYLOR MD Encounters Encounter Location Arrival/Admit Date Discharge/Depart Date Attending Provider Discharged Inpatient [facility] 05/12/17 6:09pm 05/19/17 2:02pm NORBERTO ANDREW MD
[2017-05-20] MEDS ORDERED: SODIUM CHLORIDE 0.9% 1000ML 1,000 ML IV STA (14:50)
[2017-05-20 15:16] LABS: BASOPHILS % 0.2 % (0.0-1.0); EOSINOPHILS % 0.2 % (0.0-6.0); HEMATOCRIT 31.1 % (34.2-44.1); HEMOGLOBIN 10.1 g/dL (12.0-16.0); LYMPHOCYTES # (AUTO) 0.9 (1.0-3.2); LYMPHOCYTES % 5.7 % (18.0-39.1); MEAN CORPUSCULAR HEMOGLOBIN 27.2 pg (28-32); MEAN CORPUSCULAR HGB CONC 32.5 g/dL (31-35); MEAN CORPUSCULAR VOLUME 83.6 fL (81-99); MONOCYTES % 6.2 % (4.4-11.3); PLATELET COUNT 406 x10e3/uL (140-360); RED BLOOD COUNT 3.72 x10e6/uL (3.6-5.1); RED CELL DISTRIBUTION WIDTH 17.7 % (11.7-14.4)
[2017-05-20 15:18] LABS: INR 0.88; PARTIAL THROMBOPLASTIN TIME 27.8 seconds (23.8-35.5); PROTHROMBIN TIME 12.4 seconds (11.9-14.5)
--- NOTE | 2017-05-20 15:21 | Diagnostic Imaging Report ---
PROCEDURE: A single AP view of the chest. COMPARISON: Patients [facility], , CHEST SINGLE (PORTABLE), 05/17/2017, 10:45. INDICATIONS: SHORTNESS OF BREATH FINDINGS: Lines/tubes: None. Lungs: The lungs are hyperinflated. Coarsening of the pulmonary interstitium in the lower lobes. Biapical pleural scarring. There is no evidence of pneumonia or pulmonary edema. Pleura: There is no pleural effusion or pneumothorax. Bilateral pleural scarring with blunting of the lateral costophrenic sulci. Heart and mediastinum: The cardiac silhouette is mildly enlarged. Calcifications of the aortic arch. Bones: No acute bony abnormality. IMPRESSION: 1. stable exam. COPD. Marychuy Alcantara M.D. Dictated by: Marychuy Alcantara M.D. on 05/20/2017 at 15:30 Electronically approved by: Marychuy Alcantara M.D. on 05/20/2017 at 15:30
[2017-05-20 15:26] LABS: ALBUMIN 3.3 g/dL (3.5-5.0); ALBUMIN/GLOBULIN RATIO 1.1 (0.8-2.0); ANION GAP 16.2 mmol/L (8-16); CALCIUM 9.1 mg/dL (8.4-10.2); CREATININE, SERUM 1.81 mg/dL (0.57-1.11); POTASSIUM 3.2 mmol/L (3.5-5.1)
[2017-05-20 15:33] LABS: CREATINE KINASE MB 1.2 ng/mL (0.00-5.00)
[2017-05-20 15:48] LABS: BILIRUBIN,URINE 1+ (NEGATIVE); CLARITY,URINE HAZY (CLEAR); COLOR,URINE YELLOW (YELLOW); KETONES,URINE NEGATIVE (NEGATIVE); LEUKOCYTE ESTERASE ,URINE 2+ (NEGATIVE); NITRITE,URINE NEGATIVE (NEGATIVE); URINE UROBILINOGEN 1 mg/dL (0.2 - 1)
[2017-05-20 15:56] LABS: PROTEIN,URINE DIPSTICK 2+ (NEGATIVE)
[2017-05-20 16:02] LABS: BACTERIA,URINE MANY /HPF; EPITHELIAL CELLS,URINE RARE /LPF; MUCUS,URINE FEW (RARE); RBC,URINE 21-50 /HPF (0-5); WBC,URINE (MAN) >50 /HPF (0-5)
[2017-05-20] MEDS ORDERED: MEROPENEM 500MG 500 MG in SODIUM CHLORIDE 0.9% 50ML 50 ML IV STA (16:53)
[2017-05-20] MEDS ORDERED: SODIUM CHLORIDE 0.9% 1000ML 1,000 ML IV SCH (16:59)
[2017-05-20] MEDS ORDERED: DEXTROSE 50% SYRINGE 50 ML IV PRN (17:00)
[2017-05-20] MEDS ORDERED: ONDANSETRON HCL INJ 2 MG/ML VIAL IV PRN (17:00)
[2017-05-20] MEDS ORDERED: ASPIRIN 81 MG CHEW TAB PO ONE (17:00)
[2017-05-20] MEDS ORDERED: ONDANSETRON HCL INJ 2 MG/ML VIAL IV STA (18:12)
[2017-05-20] MEDS: MEROPENEM 500 MG VIAL IV SCH (18:40)
[2017-05-20] MEDS: INSULIN REGULAR, HUMAN 100 UNIT/1 ML 3ML VIAL SQ SCH (20:39)
[2017-05-20] MEDS ORDERED: MEROPENEM 500MG 500 MG in SODIUM CHLORIDE 0.9% 50ML 50 ML IV SCH (21:00)
[2017-05-20 21:31] VITALS: BP 172/74
[2017-05-20 21:53] VITALS: BP 172/74
[2017-05-20 21:54] VITALS: BP 172/74
[2017-05-21] VITALS (8 sets, daily range): BP systolic 100–178; BP diastolic 54–75
[2017-05-21 01:00] LABS: CREATINE KINASE MB 0.6 ng/mL (0.00-5.00)
[2017-05-21 06:02] LABS: BASOPHILS % 0.5 % (0.0-1.0); EOSINOPHILS % 0.5 % (0.0-6.0); HEMATOCRIT 28.4 % (34.2-44.1); HEMOGLOBIN 9.2 g/dL (12.0-16.0); LYMPHOCYTES # (AUTO) 1.2 (1.0-3.2); LYMPHOCYTES % 13.9 % (18.0-39.1); MEAN CORPUSCULAR HEMOGLOBIN 26.7 pg (28-32); MEAN CORPUSCULAR HGB CONC 32.4 g/dL (31-35); MEAN CORPUSCULAR VOLUME 82.6 fL (81-99); MONOCYTES # (AUTO) 0.6 (0.2-0.8); MONOCYTES % 7.3 % (4.4-11.3); NEUTROPHILS # (AUTO) 6.4 (2.1-6.9); NEUTROPHILS % 77.6 % (38.7-80.0); PLATELET COUNT 324 x10e3/uL (140-360); RED BLOOD COUNT 3.44 x10e6/uL (3.6-5.1); RED CELL DISTRIBUTION WIDTH 17.6 % (11.7-14.4)
[2017-05-21] MEDS: MEROPENEM 500 MG VIAL IV SCH ×2 (06:05→20:14)
[2017-05-21 06:18] LABS: ANION GAP 13.2 mmol/L (8-16); CALCIUM 8.5 mg/dL (8.4-10.2); CREATININE, SERUM 1.34 mg/dL (0.57-1.11); POTASSIUM 3.2 mmol/L (3.5-5.1)
[2017-05-21] MEDS: INSULIN REGULAR, HUMAN 100 UNIT/1 ML 3ML VIAL SQ SCH ×4 (07:30→20:14)
[2017-05-21] MEDS ORDERED: PANTOPRAZOLE SOD 40 MG TABEC PO SCH (09:00)
[2017-05-21] MEDS ORDERED: POTASSIUM CHLORIDE 10 MEQ TABCR PO NR (09:30)
[2017-05-21] MEDS: NIFEDIPINE CR 30 MG TAB PO SCH (09:31)
[2017-05-21] MEDS: PANTOPRAZOLE SODIUM 40 MG SUSPDR.PKT PO SCH ×2 (09:31→20:14)
[2017-05-21] MEDS: CLOPIDOGREL BISULFATE 75 MG TAB PO SCH (09:31)
[2017-05-21] MEDS: EZETIMIBE 10 MG TAB PO SCH (09:32)
--- NOTE | 2017-05-21 09:33 | History and Physical ---
Patient was placed in observation. CHIEF COMPLAINT: Generalized weakness secondary to medication induced. HISTORY: The patient is an 82-year-old female with baseline COPD with multiple exacerbations. She also has a history of anemia. Hemoglobin of 5.1, status post blood transfusion. She just recently went home. Apparently, at home she was all her medications, including Lasix, hydrochlorothiazide, nifedipine, and lisinopril. The patient's blood pressure dropped. She had a near syncopal episode and came to the hospital dehydrated. Patient did receive IV fluids. Potassium was low at 3.2. Patient did receive potassium replacement. She is otherwise stable. She does have a urinary tract infection. PAST MEDICAL HISTORY: Baseline COPD, diverticulosis, gastritis, hypertension, peripheral vascular disease, left BKA, reflux, hyperlipidemia, diabetes, type 2. PAST SURGICAL HISTORY: Left BKA, right carotid endarterectomy, history of hemorrhoidectomy, appendectomy. SOCIAL HISTORY: Patient lives at home by herself. She does have her son checking up on her. ALLERGIES: NO KNOWN ALLERGIES. HOME MEDICATIONS: List reviewed, including Plavix, doxycycline, Zetia, Lasix, Amaryl, hydrochlorothiazide, lisinopril, nifedipine, Protonix, and prednisone. PHYSICAL EXAMINATION VITAL SIGNS: Temperature is 98, blood pressure 150/63, pulse rate 76, respirations 18. On admission, the patient's blood pressure systolic was 92. GENERAL: The patient is not in acute distress. She is awake. HEENT: Normocephalic, atraumatic and anicteric. NECK: Supple grossly. PULMONARY: Diminished breath sounds. CARDIOVASCULAR: S1 and S2. Regular rate and rhythm. ABDOMEN: Soft. Positive bowel sounds. Grossly nontender. No distention. EXTREMITIES: No gross cyanosis or edema. NEUROLOGIC: There is no gross focal deficit. LABORATORY: Sodium is 138, potassium 3.2, chloride 98, bicarb 30, BUN 28, creatinine 1.3, glucose 78. WBC is 8, hemoglobin 9.2, hematocrit 28.4, and platelets is 324,000. IMPRESSION 1. Hypertensive secondary to multiple diuretics and blood pressure medication. 2. Near syncopal episode secondary to the above. 3. Simple urinary tract infection. PLAN: Continue with antibiotics for now. Check the urine culture. Resume the patient's nifedipine, Plavix, Zetia, and Protonix. Discontinue Amaryl, Lasix, hydrochlorothiazide, lisinopril, and prednisone. Will monitor the patient closely. Job#: [id number] RI
[2017-05-21 09:58] LABS: CREATINE KINASE MB 0.9 ng/mL (0.00-5.00)
[2017-05-21] MEDS ORDERED: CYANOCOBALAMIN INJ 1,000 MCG/ML VIAL IM NR (10:00)
[2017-05-22 00:40] VITALS: BP 133/61
[2017-05-22 05:00] VITALS: BP 154/69
[2017-05-22] MEDS: MEROPENEM 500 MG VIAL IV SCH (05:09)
[2017-05-22 06:01] LABS: BASOPHILS % 0.6 % (0.0-1.0); EOSINOPHILS # (AUTO) 0.1 (0.0-0.4); EOSINOPHILS % 1.8 % (0.0-6.0); HEMATOCRIT 29.3 % (34.2-44.1); HEMOGLOBIN 9.3 g/dL (12.0-16.0); LYMPHOCYTES # (AUTO) 1.3 (1.0-3.2); LYMPHOCYTES % 19.7 % (18.0-39.1); MEAN CORPUSCULAR HEMOGLOBIN 26.5 pg (28-32); MEAN CORPUSCULAR HGB CONC 31.7 g/dL (31-35); MEAN CORPUSCULAR VOLUME 83.5 fL (81-99); MONOCYTES # (AUTO) 0.5 (0.2-0.8); NEUTROPHILS # (AUTO) 4.7 (2.1-6.9); NEUTROPHILS % 70.6 % (38.7-80.0); PLATELET COUNT 320 x10e3/uL (140-360); RED BLOOD COUNT 3.51 x10e6/uL (3.6-5.1); RED CELL DISTRIBUTION WIDTH 17.5 % (11.7-14.4)
[2017-05-22 06:24] LABS: ANION GAP 13.4 mmol/L (8-16); CALCIUM 8.5 mg/dL (8.4-10.2); CREATININE, SERUM 1.24 mg/dL (0.57-1.11); POTASSIUM 3.4 mmol/L (3.5-5.1)
[2017-05-22 07:19] VITALS: BP_SYST 150; BP_SYST 173; BP_DIAS 70; BP_DIAS 77
[2017-05-22] MEDS: INSULIN REGULAR, HUMAN 100 UNIT/1 ML 3ML VIAL SQ SCH ×2 (07:30→11:30)
[2017-05-22 07:36] VITALS: BP 150/70
[2017-05-22] MEDS: NIFEDIPINE CR 30 MG TAB PO SCH (08:12)
[2017-05-22] MEDS: EZETIMIBE 10 MG TAB PO SCH (08:12)
[2017-05-22] MEDS: CLOPIDOGREL BISULFATE 75 MG TAB PO SCH (08:12)
[2017-05-22] MEDS: PANTOPRAZOLE SODIUM 40 MG SUSPDR.PKT PO SCH (08:12)
--- NOTE | 2017-05-22 08:43 | Discharge Summary ---
FINAL DIAGNOSES 1. Dehydration secondary to multiple diuretic usage, including furosemide and hydrochlorothiazide. 2. Hypokalemia secondary to the above. 3. Overtaking of hypertensive medication resulting in hypotension and near syncopal episode. 4. Urinary tract infection with simple Escherichia coli. SUMMARY: Patient is a pleasant 82-year-old female with baseline COPD. Patient came in with increase in generalized weakness. She was hypotensive. Received IV normal saline bolus. Patient's potassium was also low and replaced. Basically, the patient was overmedicated. She at baseline was taking nifedipine ER 60 mg. Along with that, she was taking hydrochlorothiazide 25 mg daily, Lasix 40 mg daily, and lisinopril 5 mg daily. All those medications dropped her blood pressure systolic down into the 90s since the patient was eating and drinking once she was on home from previous. Patient is stable now. Blood pressure remained stable. Adjustment of her medications is made. At this time, she is stable. On going home, the patient will take the following medications: 1. Plavix 75 mg daily. 2. Zetia 10 mg daily. 3. Amaryl 1 mg daily. 4. Nifedipine ER 60 mg daily. 5. Protonix 40 mg daily. 6. Multivitamin. New prescriptions, the patient will take: 1. ProAir HFA 2 puffs q.6 h. as needed. 2. Advair Diskus 250 per 50 one puff b.i.d. 3. Cipro 500 mg b.i.d. for 7 days. 4. Potassium 20 mEq daily. Patient is stable. Discussed with the patient at length. Because the patient lives by herself, she has a left BKA, she needs assistance at home with also monitoring her pulmonary function and along with that fluid status from her baseline diastolic dysfunction congestive heart failure. Patient may benefit from chronic care from Hospice care. Discussed with the patient at length, and also talked to the patient's family, Mr. Randle, her son as well. The patient will make that decision when she goes home. Patient is stable and discharged home today. Job#: [id number] TOMASZ
[2017-05-22] MEDS ORDERED: CIPRO500 MG PO (10:27)
[2017-05-22] MEDS ORDERED: POTASSIUM CHLO20 ME1 PO (10:28)
[2017-05-22] MEDS ORDERED: PROAIR HFA INH8.5 GM INH (10:29)
[2017-05-22] MEDS ORDERED: ADVAIR 250-501 EACH INH (10:31)
[2017-05-22 11:09] VITALS: BP 161/79
== END 2017-05-22 13:15 | disposition hospice, home (50) ==
LOC: ER 13:20 → ERHOLD 19:36 → IMCU 20:27
PROVIDERS: ADMIT Internal Medicine; ATTEND Internal Medicine
DX: E86.0 Dehydration (principal); N10 Acute pyelonephritis; I95.0 Idiopathic hypotension; T50.1X5A Adverse effect of loop [high-ceiling] diuretics, initial encounter; T46.5X5A Adverse effect of other antihypertensive drugs, initial encounter; Z51.5 Encounter for palliative care; R55 Syncope and collapse; Z89.512 Acquired absence of left leg below knee; E11.9 Type 2 diabetes mellitus without complications; E78.5 Hyperlipidemia, unspecified; E87.6 Hypokalemia; B96.20 Unspecified Escherichia coli [E. coli] as the cause of diseases classified elsewhere; I13.0 Hypertensive heart and chronic kidney disease with heart failure and stage 1 through stage 4 chronic kidney disease, or unspecified chronic kidney disease; I50.30 Unspecified diastolic (congestive) heart failure; N18.9 Chronic kidney disease, unspecified
CPT/HCPCS: 36415 ×3; 71045; 80048 ×2; 80053; 81001; 82550 ×2; 82553 ×2; 82948 ×3; 84484 ×2; 85025 ×3; 85610; 85730; 87086; 87186; 93005 ×2; 97139; 99284; G0378 ×3; J2185 ×3; J2405; J7030

== ENCOUNTER → 2017-09-10 | Outpatient (CLI) | payer OTHER ==
[~2017-09-10] MED LIST changes: +ADVAIR 250-501 EACH INH; +CIPRO500 MG PO; +POTASSIUM CHLO20 ME1 PO; +PROAIR HFA INH8.5 GM INH
--- NOTE | 2017-09-10 14:53 | Diagnostic Imaging Report ---
PROCEDURE:HAND RIGHT 3 VIEWS AP \T\ LAT COMPARISON:None. INDICATIONS:POSTERIOR HAND/WRIST PAIN FINDINGS: Generalized osteopenia. Remote healed fracture of the first metacarpal bone. Degenerative changes of the first carpometacarpal joint. Remote avulsion fracture of the ulnar styloid. Deformity of the distal radial metadiaphysis suggestive of remote healed fracture. There are no acute fractures, dislocations, lytic or blastic lesions. The bones are well-mineralized. The soft-tissues are unremarkable. CONCLUSION: 1. No acute osseous abnormality. 2. Degenerative changes of the first carpometacarpal joint. Marychuy Alcantara M.D. Dictated by: Marychuy Alcantara M.D. on 09/10/2017 at 14:55 Electronically approved by: Marychuy Alcantara M.D. on 09/10/2017 at 14:55
== END ==
LOC: RAD 13:32
PROVIDERS: ATTEND Internal Medicine
DX: M79.641 Pain in right hand (principal); M25.531 Pain in right wrist

== ENCOUNTER 2017-09-29 11:54 | Inpatient (IN) | payer OTHER ==
[2017-09-29] VITALS (13 sets, daily range): BP systolic 100–145; BP diastolic 43–78
[~2017-09-29] VITALS: Ht 157.5 cm; Wt 45.0 kg
[2017-09-29] MEDS ORDERED: SENNA LAX8.6 MG PO (12:49)
[2017-09-29] MEDS ORDERED: ASPIR 8181 MG PO (12:49)
[2017-09-29] MEDS ORDERED: VITAMIN C500 M1 PO (12:49)
[2017-09-29] MEDS ORDERED: ALLOPURINOL100 MG PO (12:49)
[2017-09-29] MEDS ORDERED: FERROUS SULFAT325 MG PO (12:49)
[2017-09-29] MEDS ORDERED: LISINOPRIL-HCT1 EAC2 PO (12:49)
[2017-09-29] MEDS ORDERED: VITAMIN D31000 UNIT PO (12:49)
[2017-09-29] MEDS ORDERED: PRAVASTATIN SOD40 MG PO (12:49)
[2017-09-29] MEDS ORDERED: SODIUM CHLORIDE 0.9% 1000ML 1,000 ML ONE (13:11)
[2017-09-29 14:43] LABS: BASOPHILS % 0.5 % (0.0-1.0); EOSINOPHILS % 0.2 % (0.0-6.0); HEMATOCRIT 23.3 % (34.2-44.1); HEMOGLOBIN 7.9 g/dL (12.0-16.0); LYMPHOCYTES % 11.8 % (18.0-39.1); MEAN CORPUSCULAR HEMOGLOBIN 28.7 pg (28-32); MEAN CORPUSCULAR HGB CONC 33.9 g/dL (31-35); MEAN CORPUSCULAR VOLUME 84.7 fL (81-99); MONOCYTES # (AUTO) 0.5 (0.2-0.8); NEUTROPHILS % 81.2 % (38.7-80.0); PLATELET COUNT 354 x10e3/uL (140-360); RED BLOOD COUNT 2.75 x10e6/uL (3.6-5.1); RED CELL DISTRIBUTION WIDTH 14.6 % (11.7-14.4)
[2017-09-29 14:48] LABS: INR 1.1; PROTHROMBIN TIME 13.4 seconds (11.9-14.5)
[2017-09-29 14:50] LABS: BILIRUBIN,URINE NEGATIVE (NEGATIVE); CLARITY,URINE CLEAR (CLEAR); COLOR,URINE YELLOW (YELLOW); KETONES,URINE NEGATIVE (NEGATIVE); LEUKOCYTE ESTERASE ,URINE NEGATIVE (NEGATIVE); NITRITE,URINE NEGATIVE (NEGATIVE); PROTEIN,URINE DIPSTICK 2+ (NEGATIVE); URINE UROBILINOGEN 0.2 mg/dL (0.2 - 1)
[2017-09-29 14:59] LABS: ALBUMIN 3.8 g/dL (3.5-5.0); ALBUMIN/GLOBULIN RATIO 1.5 (0.8-2.0); ANION GAP 15.6 mmol/L (8-16); CALCIUM 9.6 mg/dL (8.4-10.2); CREATININE, SERUM 2.49 mg/dL (0.57-1.11); POTASSIUM 3.6 mmol/L (3.5-5.1)
[2017-09-29 15:05] LABS: CREATINE KINASE MB 3.7 ng/mL (0-5.0)
[2017-09-29 15:11] LABS: BACTERIA,URINE RARE /HPF; EPITHELIAL CELLS,URINE FEW /LPF; RBC,URINE 0-5 /HPF (0-5)
--- NOTE | 2017-09-29 16:02 | Diagnostic Imaging Report ---
PROCEDURE: A single AP view of the chest. COMPARISON: Patients [facility], , CHEST SINGLE (PORTABLE), 05/20/2017, 15:08. INDICATIONS: WEAKNESS FINDINGS: Lines/tubes: None. Lungs: The lungs are mildly h hyperinflated. There is no evidence of pneumonia or pulmonary edema. Pleura: There is no pleural effusion or pneumothorax. Biapical pleural scarring. Bibasilar pleural scarring. Heart and mediastinum: The heart and the mediastinum are unremarkable. Calcification of aortic arch. Bones: No acute bony abnormality. IMPRESSION: 1. No acute thoracic abnormality. COPD. Marychuy Alcantara M.D. Dictated by: Marychuy Alcantara M.D. on 09/29/2017 at 16:05 Electronically approved by: Marychuy Alcantara M.D. on 09/29/2017 at 16:05
[2017-09-29] MEDS ORDERED: SODIUM CHLORIDE 0.9% 250ML 250 ML IV ONE ×2 (18:00→21:45)
[2017-09-29] MEDS ORDERED: PANTOPRAZOLE INJ 80 MG in SODIUM CHLORIDE 0.9% 100 ML IV SCH (18:00)
[2017-09-29] MEDS ORDERED: FUROSEMIDE INJ 10 MG/ML 4 ML VIAL IV PRN (18:00)
[2017-09-29] MEDS: PANTOPRAZOL 40MG/SOD CHL 0.9% 50 ML IV SCH ×2 (18:53→23:43)
[2017-09-29] MEDS: SODIUM CHLORIDE 0.9% 1000ML 1,000 ML IV SCH (18:53)
--- NOTE | 2017-09-29 20:18 | Diagnostic Imaging Report ---
Examination: CT of the Head without Contrast History:Fall Comparison studies:Head CT performed February 09 Technique: Axial images were obtained from the skull base to the vertex. Coronal and sagittal images reconstructed from the axial data. 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 Extra-axial spaces: No masses. No fluid collections. Brain sulci: Unchanged mildly prominent. Ventricles: Unchanged mild compensatory dilatation. No hydrocephalus. Parenchyma: Unchanged confluent hypodensities in the supratentorial white matter are small vessel ischemic changes. No masses, hemorrhage, acute or chronic cortical vascular insults. Sellar/suprasellar region: No abnormalities. Craniocervical junction: Patent foramen magnum. No Chiari one malformation. Incidental findings: Atherosclerotic calcifications in the carotid siphons and distal vertebral arteries. Impression: No new or acute abnormalities. No change from prior head CT performed February 10, 2016. Chronic findings: 1. Moderate generalized volume loss. 2. Moderate supratentorial white matter small vessel ischemic changes. Preliminary findings discussed with Dr. YULI GLASS NP at 09/29/2017 5:[address] Ratliff. The images and preliminary report were reviewed and signed by Dr. Camilla Macias, neuroradiology faculty, on 09/29/2017 at 2014 hours. Signed by: Dr. Camilla Macias M.D. on 09/29/2017 8:14 PM
[2017-09-29 20:56] LABS: HEMATOCRIT 19.3 % (34.2-44.1); HEMOGLOBIN 6.7 g/dL (12.0-16.0)
[2017-09-29 21:16] LABS: CREATINE KINASE MB 3.8 ng/mL (0-5.0)
--- NOTE | 2017-09-29 23:26 | Diagnostic Imaging Report ---
EXAM: CT ABDOMEN/PELVIS WO DATE: 09/29/2017 9:37 PM INDICATION: GI bleed COMPARISON: None TECHNIQUE: The abdomen and pelvis were scanned using a multidetector helical scanner. Coronal and sagittal reformations were obtained. Routine protocol performed. IV Contrast: 0 ml Isovue 300/370 FINDINGS: Lack of IV contrast decreases sensitivity in evaluating abdominal and pelvic organs. LOWER THORAX: No consolidations. Coronary artery and aortic atherosclerotic calcifications. LIVER/BILIARY: No masses. No ductal dilatation. GALLBLADDER: Unremarkable SPLEEN: Unremarkable PANCREAS: Unremarkable ADRENALS: No discrete nodule KIDNEYS: The right kidney is atrophic. An 8 mm exophytic left anterior renal lesion is indeterminate, incompletely assessed without IV contrast. No hydronephrosis. GI TRACT: There is a small hiatal hernia. Mild apparent gastric wall thickening. No evidence of bowel obstruction. Colonic diverticulosis, worse of the sigmoid colon. VESSELS: Severe atherosclerotic calcifications throughout the vasculature. Partially imaged left lower extremity vascular stents. PERITONEUM/RETROPERITONEUM: No free air or fluid LYMPH NODES: No definite lymphadenopathy REPRODUCTIVE ORGANS/BLADDER: Hysterectomy. Mildly distended fluid filled bladder. SOFT TISSUES: Unremarkable BONES: Scattered degenerative changes with superior endplate depression of L2 and T12. IMPRESSION: 1. Mild apparent gastric wall thickening, which may be related to underdistention or gastritis. 2. Diverticulosis, worse of the sigmoid colon. Signed by: Dr Yasmine Nicholas MD on 09/29/2017 11:22 PM
[2017-09-30] VITALS (94 sets, daily range): BP systolic 106–180; BP diastolic 52–108
[2017-09-30] MEDS: PANTOPRAZOL 40MG/SOD CHL 0.9% 50 ML IV SCH ×5 (03:48→21:20)
[2017-09-30 04:10] LABS: CREATINE KINASE MB 3.3 ng/mL (0-5.0)
[2017-09-30 08:15] LABS: BASOPHILS % 0.5 % (0.0-1.0); EOSINOPHILS # (AUTO) 0.1 (0.0-0.4); EOSINOPHILS % 1.8 % (0.0-6.0); HEMATOCRIT 29.3 % (34.2-44.1); HEMOGLOBIN 10.2 g/dL (12.0-16.0); LYMPHOCYTES # (AUTO) 0.8 (1.0-3.2); LYMPHOCYTES % 14.3 % (18.0-39.1); MEAN CORPUSCULAR HEMOGLOBIN 29.5 pg (28-32); MEAN CORPUSCULAR HGB CONC 34.8 g/dL (31-35); MEAN CORPUSCULAR VOLUME 84.7 fL (81-99); MONOCYTES # (AUTO) 0.4 (0.2-0.8); MONOCYTES % 6.3 % (4.4-11.3); NEUTROPHILS # (AUTO) 4.3 (2.1-6.9); NEUTROPHILS % 76.7 % (38.7-80.0); PLATELET COUNT 227 x10e3/uL (140-360); RED BLOOD COUNT 3.46 x10e6/uL (3.6-5.1); RED CELL DISTRIBUTION WIDTH 13.9 % (11.7-14.4)
[2017-09-30 08:38] LABS: ANION GAP 11.5 mmol/L (8-16); CALCIUM 8.4 mg/dL (8.4-10.2); CREATININE, SERUM 1.67 mg/dL (0.57-1.11); POTASSIUM 3.5 mmol/L (3.5-5.1)
[2017-09-30] MEDS: SUCRALFATE 1 GM TAB PO SCH ×4 (09:13→20:41)
--- NOTE | 2017-09-30 09:34 | Consultation ---
DATE OF CONSULTATION: September 29, 2017 CARDIOLOGY CONSULTATION REASON FOR CONSULTATION: NSTEMI. CONSULTING PHYSICIAN: Dr. Ochoa HPI: This is a pleasant 82-year-old female that presented with generalized weakness. According to the patient, she started having dark stool, weakness, difficulty with walking, and spasm of the left arm accompanied with low blood pressure times 2 weeks that she decided to come into the emergency room for evaluation. She stated she gets short of breath with activity that stops when she is not doing anything. She also has a history of carotid stenosis in the past and left BKA. She denied any chest pain, any palpitations, any dizziness, any diaphoresis, or headache. Her troponin was positive. EKG showed normal sinus rhythm with no S/T abnormalities. In the ER, she was found with low hemoglobin of 6.7, and she received 2 units of blood. She is doing better, and planned for EGD. PAST MEDICAL HISTORY: COPD, gastritis, hypertension, PVD, reflux, hyperlipidemia, diabetes, syncope, UTI, CKD, anemia, gout, and GI bleed. PAST SURGICAL HISTORY: Left BKA, right carotid endarterectomy, appendectomy, hysterectomy, and cardiac catheterization 5 years ago with no intervention. FAMILY HISTORY: Positive for hypertension. SOCIAL HISTORY: She lives at home by herself. She quit smoking in the . MEDICATIONS: She was on Plavix, glimepiride, allopurinol, Pravastatin, aspirin, lisinopril, hydrochlorothiazide, labetalol, Lasix, and ezetimibe. ALLERGIES: SHE IS NOT ALLERGIC TO ANY MEDICATIONS. REVIEW OF SYSTEMS: Negative except those mentioned above. She is positive for GI bleed and evo-WY-igbatsqep MO. PHYSICAL EXAMINATION VITAL SIGNS: Temperature 97, heart rate 74, blood pressure 137/59, respirations 14, oxygen saturation 98% on 2 L nasal cannula. GENERAL: She is awake, alert and oriented times 3. HEENT: Mucous membranes moist. NECK: Supple. LUNGS: Bilateral with decreased breath sounds. CARDIOVASCULAR: S1 and S2 present. ABDOMEN: Soft. NEUROLOGICAL: Intact. EXTREMITIES: With no edema. LABS: Sodium 133, potassium 3.6, chloride 92, CO2 29, BUN 53, creatinine 2.49, glucose 116. White blood cells 8.62, hemoglobin 6.7, hematocrit 19.3, and platelets 354,000. PT 13.4, PTT 32, and INR 1.1. IMPRESSION 1. Qej-WQ-ubhlpkgvh myocardial infarction. 2. Gastrointestinal bleed. 3. Anemia. 4. History of carotid stenosis. 5. Hypertension. 6. Diabetes. 7. Hyponatremia. ASSESSMENT AND PLAN: Will go ahead and get an echocardiogram to assess the LV and the valve function. She denies any chest pain. She refused cardiac catheterization stating 5 years ago she had a bad reaction to it, and was scared, and does not think she wants to do it again. If she decides she wants to do the cath, she is going to need a renal clearance due to the kidney function that is abnormal. She is planned for EGD. Will continue her home blood pressure medications. Go ahead and hold her aspirin and Plavix due to the GI bleed. Further cardiac workup pending clinical course. Thank you for this consultation. DICTATED BY CHIQUITA AZUL NP Job#: [id number] TOMASZ
[2017-09-30] MEDS: SODIUM CHLORIDE 0.9% 1000ML 1,000 ML IV SCH (10:05)
--- NOTE | 2017-09-30 10:46 | Consultation ---
DATE OF CONSULTATION: September 30, 2017 This is an 82-year-old who has a history of hiatal hernia. She apparently presented to the hospital because of generalized weakness and dark stool. The patient also was hypotensive. She denies any abdominal pain, nausea or vomiting along with this problem. Workup so far showed that the hemoglobin was 6.7. She apparently received transfusion last night. She had a CAT scan of the abdomen and pelvis on admission, which showed mild apparent gastric wall thickening as well as diverticulosis. Her other medical problems are significant for history of hypertension, history of renal disease, history of peripheral vascular disease as well as diabetes. She apparently has had GI bleed in the past. MEDICATIONS: Her medications at home include Lasix, Plavix, glimepiride, allopurinol, , aspirin, lisinopril, hydrochlorothiazide, ezetimibe, labetalol. SOCIAL HISTORY: Former smoker. FAMILY HISTORY: Noncontributory. REVIEW OF SYSTEMS: At this point, she denies any chest pain. Denies any shortness of breath. Denies any dysphagia or odynophagia. Denies any dysuria, hematuria or syncopal episode. PHYSICAL EXAMINATION GENERAL: Awake, alert, appears to be stable, not in acute distress at this point. VITAL SIGNS: Afebrile currently. HEAD, EYES, EARS, NOSE AND THROAT: Normocephalic and atraumatic. Sclerae are anicteric. NECK: Supple. CARDIAC: Regular. LUNGS: Clear. ABDOMEN: Soft. There is no distention at this point. It is nontender. EXTREMITIES: No clubbing. LAB VALUES: PT and INR normal. Troponin is high. BUN 53 and creatinine 2.49. Hemoglobin 6.7 this morning. IMPRESSION 1. Gastrointestinal bleed. Apparently, the patient had black, tarry stools. CAT scan showed some thickening in the stomach area. Rule out the possibility of peptic ulcer disease. 2. Fjw-IR-mncpvaqwp myocardial infarction. 3. Diabetes. RECOMMENDATIONS: Proton pump inhibitor at this point. Clear liquid diet. Get cardiac clearance for evaluations. Will do EGD tomorrow if cleared by cardiology. Will also add Carafate for now. Job#: [id number] cc:MD RADHA JARVIS MD
[2017-09-30 11:58] LABS: BASOPHILS % 0.5 % (0.0-1.0); EOSINOPHILS # (AUTO) 0.1 (0.0-0.4); HEMATOCRIT 30.7 % (34.2-44.1); HEMOGLOBIN 10.6 g/dL (12.0-16.0); LYMPHOCYTES % 15.5 % (18.0-39.1); MEAN CORPUSCULAR HEMOGLOBIN 29.4 pg (28-32); MEAN CORPUSCULAR HGB CONC 34.5 g/dL (31-35); MEAN CORPUSCULAR VOLUME 85.3 fL (81-99); MONOCYTES # (AUTO) 0.5 (0.2-0.8); MONOCYTES % 7.5 % (4.4-11.3); NEUTROPHILS # (AUTO) 4.8 (2.1-6.9); NEUTROPHILS % 74.2 % (38.7-80.0); PLATELET COUNT 241 x10e3/uL (140-360)
[2017-09-30] MEDS ORDERED: DEXTROSE 50% SYRINGE 50 ML IV PRN (17:15)
--- NOTE | 2017-09-30 17:50 | History and Physical ---
CHIEF COMPLAINT: Melena, weakness and symptomatic anemia. HISTORY: An 82-year-old female with multiple medical problems including diverticulosis, complained of melena, but for the past week or so she was having increasing weakness and shortness of breath and near fall. The patient came in with very low hemoglobin and hematocrit symptomatically. The patient is now status post 2 units blood transfusion. Hemoglobin hematocrit on admission was 6.7 and 19.3. Now it is 10.6 and 30.7 after blood transfusion. She is stable. Because of her stress, her cardiac enzymes slightly bumped up, most likely troponin leakage. Troponin I is 0.78 to 0.64. The patient is otherwise stable at baseline. She does have chronic kidney disease. PAST MEDICAL HISTORY: Chronic kidney disease, diabetes type 2, hypertension, peripheral vascular disease, right carotid endarterectomy, hemorrhoidectomy, appendectomy, left BKA, baseline COPD, diverticulosis, gastritis, hypertension, peripheral vascular disease, reflux, dyslipidemia and diabetes type 2. HOME MEDICATIONS: Extensive including albuterol, allopurinol, ascorbic acid, aspirin, Plavix, , ferrous sulfate, Advair, Lasix, Amaryl, lisinopril, hydrochlorothiazide, Protonix, potassium, pravastatin. ALLERGIES: NO KNOWN DRUG ALLERGIES. SOCIAL HISTORY: Patient does not smoke or use alcohol. No recreational drugs. PHYSICAL EXAMINATION: GENERAL: The patient is in no acute distress. She is eating now. VITAL SIGNS: Temperature is 98. Blood pressure 137/59. Pulse rate 74. Respirations 20. HEENT: Normocephalic, atraumatic. NECK: Supple grossly. PULMONARY: Diminished breath sounds. CARDIOVASCULAR: Regular rate and rhythm. ABDOMEN: Soft. EXTREMITIES: Left BKA. NEUROLOGIC: No focal deficit. LABORATORY DATA: Hemoglobin is 6.7, now 10.6, hematocrit 19.3, now 30.7. Urinalysis otherwise unremarkable. IMAGING: CT scan of abdomen and pelvis showed that she has diverticulosis worse at the level of sigmoid colon. There is gastric wall thickening may be relating to gastritis. IMPRESSION: 1. Symptomatic anemia secondary to melena most likely upper GI bleed. Taking aspirin and Plavix for atherosclerotic heart disease along with peripheral vascular disease. 2. Multiple chronic baseline problems. PLAN: EGD. Continue with some home medication. Hold off aspirin and Plavix. Insulin sliding scale coverage. Blood pressure control. The patient may or may not need cardiac catheterization since she does have chronic kidney disease and also there is more likely troponin leakage due to severe anemia. Patient is otherwise stable at this time. Job#: [id number] GH
[2017-09-30] MEDS: INSULIN LISPRO 100 UNIT/1 ML 3ML VIAL SQ SCH ×2 (18:03→23:55)
[2017-09-30 18:30] LABS: BASOPHILS % 0.7 % (0.0-1.0); EOSINOPHILS # (AUTO) 0.2 (0.0-0.4); EOSINOPHILS % 3.9 % (0.0-6.0); HEMOGLOBIN 10.3 g/dL (12.0-16.0); LYMPHOCYTES # (AUTO) 0.9 (1.0-3.2); LYMPHOCYTES % 15.9 % (18.0-39.1); MEAN CORPUSCULAR HEMOGLOBIN 29.3 pg (28-32); MEAN CORPUSCULAR HGB CONC 34.3 g/dL (31-35); MEAN CORPUSCULAR VOLUME 85.2 fL (81-99); MONOCYTES # (AUTO) 0.4 (0.2-0.8); MONOCYTES % 7.5 % (4.4-11.3); NEUTROPHILS # (AUTO) 4.2 (2.1-6.9); NEUTROPHILS % 71.7 % (38.7-80.0); PLATELET COUNT 253 x10e3/uL (140-360); RED BLOOD COUNT 3.52 x10e6/uL (3.6-5.1); RED CELL DISTRIBUTION WIDTH 14.3 % (11.7-14.4)
[2017-09-30] MEDS: SALMETEROL/FLUTICASONE 250/50 INH SCH (23:00)
[2017-10-01] VITALS (85 sets, daily range): BP systolic 101–168; BP diastolic 25–96
[2017-10-01] MEDS: PANTOPRAZOL 40MG/SOD CHL 0.9% 50 ML IV SCH ×5 (02:46→19:21)
[2017-10-01] MEDS: INSULIN LISPRO 100 UNIT/1 ML 3ML VIAL SQ SCH ×3 (06:00→18:00)
[2017-10-01 06:06] LABS: BASOPHILS % 0.6 % (0.0-1.0); EOSINOPHILS # (AUTO) 0.2 (0.0-0.4); EOSINOPHILS % 3.1 % (0.0-6.0); HEMATOCRIT 28.3 % (34.2-44.1); HEMOGLOBIN 9.7 g/dL (12.0-16.0); LYMPHOCYTES # (AUTO) 0.8 (1.0-3.2); LYMPHOCYTES % 16.4 % (18.0-39.1); MEAN CORPUSCULAR HEMOGLOBIN 29.1 pg (28-32); MEAN CORPUSCULAR HGB CONC 34.3 g/dL (31-35); MONOCYTES # (AUTO) 0.3 (0.2-0.8); MONOCYTES % 6.7 % (4.4-11.3); NEUTROPHILS # (AUTO) 3.6 (2.1-6.9); PLATELET COUNT 237 x10e3/uL (140-360); RED BLOOD COUNT 3.33 x10e6/uL (3.6-5.1); RED CELL DISTRIBUTION WIDTH 14.4 % (11.7-14.4)
[2017-10-01 06:46] LABS: ALBUMIN 2.8 g/dL (3.5-5.0); ALBUMIN/GLOBULIN RATIO 1.4 (0.8-2.0); ANION GAP 11.1 mmol/L (8-16); CALCIUM 8.4 mg/dL (8.4-10.2); CREATININE, SERUM 1.36 mg/dL (0.57-1.11); POTASSIUM 3.1 mmol/L (3.5-5.1)
[2017-10-01] MEDS: SALMETEROL/FLUTICASONE 250/50 INH SCH ×2 (07:30→19:00)
[2017-10-01] MEDS: SUCRALFATE 1 GM TAB PO SCH ×4 (07:30→20:11)
[2017-10-01] MEDS ORDERED: POTASSIUM CHLORIDE 10MEQ/100ML 100 ML IV ONE (08:45)
[2017-10-01] MEDS ORDERED: SODIUM CHLORIDE 0.9% 250ML 250 ML ONE (09:35)
[2017-10-01] MEDS ORDERED: PROPOFOL IV EMULSION 10 MG/ML 20 ML VIAL ONE (12:04)
[2017-10-01] MEDS ORDERED: PEG (High)/E-LYTE SOLN 4,000 ML BTL PO ONE (13:15)
[2017-10-01] MEDS ORDERED: BISACODYL 5 MG TAB EC PO ONE (13:15)
[2017-10-02] VITALS (76 sets, daily range): BP systolic 97–184; BP diastolic 24–102
[2017-10-02] MEDS: PANTOPRAZOL 40MG/SOD CHL 0.9% 50 ML IV SCH ×4 (00:07→16:00)
[2017-10-02] MEDS: INSULIN LISPRO 100 UNIT/1 ML 3ML VIAL SQ SCH ×4 (05:43→17:16)
[2017-10-02 05:50] LABS: BASOPHILS % 0.4 % (0.0-1.0); EOSINOPHILS # (AUTO) 0.2 (0.0-0.4); EOSINOPHILS % 3.1 % (0.0-6.0); HEMATOCRIT 29.7 % (34.2-44.1); HEMOGLOBIN 10.1 g/dL (12.0-16.0); LYMPHOCYTES # (AUTO) 0.8 (1.0-3.2); LYMPHOCYTES % 15.2 % (18.0-39.1); MEAN CORPUSCULAR HEMOGLOBIN 29.7 pg (28-32); MEAN CORPUSCULAR VOLUME 87.4 fL (81-99); MONOCYTES # (AUTO) 0.4 (0.2-0.8); MONOCYTES % 7.6 % (4.4-11.3); NEUTROPHILS % 73.3 % (38.7-80.0); PLATELET COUNT 230 x10e3/uL (140-360); RED CELL DISTRIBUTION WIDTH 14.8 % (11.7-14.4)
[2017-10-02 06:17] LABS: ALBUMIN 2.9 g/dL (3.5-5.0); ALBUMIN/GLOBULIN RATIO 1.4 (0.8-2.0); ANION GAP 9.6 mmol/L (8-16); CALCIUM 8.9 mg/dL (8.4-10.2); CREATININE, SERUM 1.3 mg/dL (0.57-1.11); POTASSIUM 4.6 mmol/L (3.5-5.1)
[2017-10-02] MEDS: SALMETEROL/FLUTICASONE 250/50 INH SCH (07:00)
[2017-10-02] MEDS: SUCRALFATE 1 GM TAB PO SCH ×4 (08:00→21:00)
[2017-10-02] MEDS: LISINOPRIL 10 MG TAB PO SCH (09:30)
[2017-10-02] MEDS: HYDROCHLOROTHIAZIDE 25 MG TAB PO SCH (09:30)
[2017-10-03] VITALS: BP 135/63
[2017-10-03 04:00] VITALS: BP 181/78
[2017-10-03] MEDS: INSULIN LISPRO 100 UNIT/1 ML 3ML VIAL SQ SCH ×2 (05:50)
[2017-10-03] MEDS ORDERED: PANTOPRAZOLE SOD 40 MG TABEC PO SCH (07:30)
[2017-10-03 08:24] VITALS: BP 157/81
[2017-10-03] MEDS: SUCRALFATE 1 GM TAB PO SCH (08:50)
[2017-10-03] MEDS: HYDROCHLOROTHIAZIDE 25 MG TAB PO SCH (10:07)
[2017-10-03] MEDS: LISINOPRIL 10 MG TAB PO SCH (10:07)
--- NOTE | 2017-10-03 10:28 | Discharge Summary ---
PCP: Dr. Ankit Yoder CONSULTANTS: Dr. Dc Villegas and Dr. Ten Puga. FINAL DIAGNOSES 1. Chronic anemia with symptoms of shortness of breath and chest pain with melena, status post esophagogastroduodenoscopy with findings of hiatal hernia, gastritis and duodenitis. 2. Spillage of cardiac enzymes. Troponin I is 0.6, 0.7 and 0.6 in a series. 3. Status post 2 units blood transfusion. 4. Tpxkf-ze-vifirjt renal injury secondary to multiple diuretic and ALEX inhibitor. SUMMARY: This is an 82-year-old female who came in with dehydration. She had elevation of BUN and creatinine on admission due to dehydration. Patient was on Lasix and lisinopril/hydrochlorothiazide at home for blood pressure. BUN and creatinine on admission were 53 and 2.5 respectively. The patient had cardiac enzyme spillage as well. Her hemoglobin and hematocrit were 6.7 and 19.3 respectively. The patient is now status post 2 units blood transfusion. She underwent EGD with finding as above. At this time, the patient's hemoglobin and hematocrit are 10.1 and 29.7 respectively and are stable. The patient will go home with some adjustment of her medications. For her home medications, the following are the adjustments: The patient will continue her home medications, but will off on the aspirin and lisinopril/hydrochlorothiazide for now. She will continue with other medications. New prescriptions are nifedipine XL 30 mg daily, omeprazole 40 mg daily and Carafate 1 gram q.a.c. nightly. The patient was instructed to follow up with Dr. Yoder in approximately 1 week for repeated blood work. She will follow up with Dr. Leach, her plumbing and heating mechanic, as an outpatient. Patient is stable and discharged home today. DIET: ADA diet. ACTIVITY: As tolerated. FOLLOWUP: As instructed. Job#: [id number]
== END 2017-10-03 11:52 | disposition home or self-care (01) | DRG 377 ==
LOC: ER 11:54 → ERHOLD 19:26 → ICU 20:04 → MED/SURG3 10-02 18:05
PROVIDERS: ADMIT Internal Medicine; ATTEND Internal Medicine
PROC: 30233N1 Transfusion of Nonautologous Red Blood Cells into Peripheral Vein, Percutaneous Approach (ICD-10-PCS; 2017-09-30)
PROC: 0DB78ZX Excision of Stomach, Pylorus, Via Natural or Artificial Opening Endoscopic, Diagnostic (ICD-10-PCS; 2017-10-01)
PROC: 0DB38ZX Excision of Lower Esophagus, Via Natural or Artificial Opening Endoscopic, Diagnostic (ICD-10-PCS; principal; 2017-10-01 12:30)
DX: K92.1 Melena (principal); I21.4 Non-ST elevation (NSTEMI) myocardial infarction; E87.1 Hypo-osmolality and hyponatremia; N17.9 Acute kidney failure, unspecified; D62 Acute posthemorrhagic anemia; K29.60 Other gastritis without bleeding; K21.9 Gastro-esophageal reflux disease without esophagitis; K22.70 Barrett's esophagus without dysplasia; R53.1 Weakness; K29.80 Duodenitis without bleeding; E86.0 Dehydration; K44.9 Diaphragmatic hernia without obstruction or gangrene; E11.22 Type 2 diabetes mellitus with diabetic chronic kidney disease; I12.9 Hypertensive chronic kidney disease with stage 1 through stage 4 chronic kidney disease, or unspecified chronic kidney disease; N18.9 Chronic kidney disease, unspecified; E78.5 Hyperlipidemia, unspecified; I95.9 Hypotension, unspecified; J44.9 Chronic obstructive pulmonary disease, unspecified; I25.10 Atherosclerotic heart disease of native coronary artery without angina pectoris; I73.9 Peripheral vascular disease, unspecified; Z53.20 Procedure and treatment not carried out because of patient's decision for unspecified reasons; Z89.512 Acquired absence of left leg below knee; Z87.891 Personal history of nicotine dependence; Z79.84 Long term (current) use of oral hypoglycemic drugs; Z79.02 Long term (current) use of antithrombotics/antiplatelets; Z79.82 Long term (current) use of aspirin
CPT/HCPCS: 36415; 43239; 70450; 71045; 74176; 80048; 80053; 81001; 82550; 82553; 82948; 83880; 84443; 84484; 85014; 85018; 85025; 85610; 85730; 86850; 86900; 86920; 87086; 88305; 88312; 93005; 93306; 93880; 94640; 96372; 97139; 99284; J1940; J3480; J7030; J7050; P9016

== ENCOUNTER 2017-12-10 07:30 | Emergency (ER) | payer OTHER ==
[~2017-12-10] VITALS: Ht 157.5 cm; Wt 47.6 kg
[~2017-12-10 07:30] MED LIST changes: +ALLOPURINOL100 MG PO; +ASPIR 8181 MG PO; +FERROUS SULFAT325 MG PO; +LISINOPRIL-HCT1 EAC2 PO; +PRAVASTATIN SOD40 MG PO; +SENNA LAX8.6 MG PO; +VITAMIN C500 M1 PO; +VITAMIN D31000 UNIT PO
[2017-12-10] MEDS ORDERED: FENTANYL CITRATE/PF 100MCG/2 ML INJ IV ONE (08:00)
[2017-12-10] MEDS ORDERED: NIFEDIPINE ER30 MG PO (08:14)
--- NOTE | 2017-12-10 08:36 | Diagnostic Imaging Report ---
PROCEDURE:X-RAY LEFT WRIST, COMPLETE COMPARISON:None. INDICATIONS:LEFT WRIST PAIN, BRUSING, AND SWELLING DUE TO FALL FINDINGS: There is an impacted, displaced, dorsally angulated fracture of the distal radius. There is approximately 7 mm of impaction. No definite intra-articular extension or comminuted components. There is surrounding soft tissue edema. Carpal alignment is maintained. There is a mildly displaced ulnar styloid process fracture. There is diffuse osteopenia. Atherosclerotic vascular calcifications are present. CONCLUSION: Left distal radial displaced and angulated fracture as above. Additional mildly displaced ulnar styloid process fracture. Dictated by: JASVIR FLANAGAN M.D. on 12/10/2017 at 8:42 Electronically approved by: JASVIR FLANAGAN M.D. on 12/10/2017 at 8:42
[2017-12-10] MEDS ORDERED: LIDOCAINE HCL 1% LOCAL INJ 20 ML VIAL ONE (08:46)
[2017-12-10] MEDS ORDERED: HYDRALAZINE HCL 20 MG/ML VIAL IV STA (08:56)
[2017-12-10] MEDS ORDERED: BENZOCAINE/TETRACAINE/BUTAMBEN AERO SPRAY 56 GM CAN TOP ONE (09:00)
[2017-12-10] MEDS ORDERED: METOPROLOL TARTRATE INJ 1 MG/ML VIAL IV ONE (09:00)
[2017-12-10] MEDS ORDERED: LIDOCAINE HCL 2% JELLY 5 ML TUBE ONE (09:01)
[2017-12-10] MEDS ORDERED: LIDOCAINE HCL 2% JELLY 5 ML TUBE TOP ONE (09:15)
[2017-12-10] MEDS ORDERED: LIDOCAINE HCL 1% LOCAL INJ 20 ML VIAL INJ ONE (09:15)
--- NOTE | 2017-12-10 11:01 | Diagnostic Imaging Report ---
This report includes an Addendum and supersedes previous reports for this exam. PROCEDURE:X-RAY LEFT WRIST, COMPLETE COMPARISON:None. INDICATIONS:POST REDUCTION LEFT WRIST FINDINGS: Overlying cast obscures bony details. Status post interval reduction of a distal radial fracture. There is improved alignment with decreased displacement and angulation. Some impaction persists. A mildly displaced ulnar styloid process fracture appears unchanged. Overlying soft tissue swelling. CONCLUSION: Status post interval reduction of distal radial fracture with improved alignment. Mildly displaced ulnar styloid process fracture. Dictated by: JASVIR FLANAGAN M.D. on 12/10/2017 at 11:07 Electronically approved by: JASVIR FLANAGAN M.D. on 12/10/2017 at 11:07 ADDENDUM: Comparison study was the left wrist radiograph series on 12/10/17 at 802 AM. Dictated by: JASVIR FLANAGAN M.D. on 12/10/2017 at 11:08 Electronically approved by: JASVIR FLANAGAN M.D. on 12/10/2017 at 11:08
[2017-12-10] MEDS ORDERED: ULTRAM50 MG PO (11:07)
[2017-12-10] MEDS ORDERED: CLONIDINE HCL 0.2 MG TAB PO ONE (11:45)
[2017-12-10 12:18] VITALS: BP 189/83
== END 2017-12-10 12:19 | disposition home or self-care (01) ==
LOC: ER 07:30
DX: M25.532 Pain in left wrist (principal); S52.592A Other fractures of lower end of left radius, initial encounter for closed fracture; W01.0XXA Fall on same level from slipping, tripping and stumbling without subsequent striking against object, initial encounter; Y93.01 Activity, walking, marching and hiking; Y92.008 Other place in unspecified non-institutional (private) residence as the place of occurrence of the external cause
CPT/HCPCS: 29125; 73110; 99284; J2001 ×2

== ENCOUNTER 2018-04-05 10:00 | Emergency (ER) | payer OTHER ==
[~2018-04-05] VITALS: Ht 157.5 cm; Wt 47.6 kg
[~2018-04-05 10:00] MED LIST changes: +NIFEDIPINE ER30 MG PO; +ULTRAM50 MG PO
--- OUTSIDE RECORDS SUMMARY | 2018-04-05 10:04 | XMS REPORT | Summary of Care ---
Author Author BENITO Solis, ALEXA Organization Unknown Address Unknown Phone Unavailable Care Team Providers Care Lean Leader Name Role Phone Mayra Thomas Unavailable Unavailable NORBERTO ALONZO, RADHA Patrick Unavailable Unavailable BRIAN MUÑOZ MD, PALAK Nogueira Unavailable Unavailable Unavailable Unavailable Functional Status Name Dates Details Functional status health issues are not documented Status: Name Dates Details Cognitive status health issues are not documented Status: Problems Name Dates Details Aortic atherosclerosis (440.0, I70.0) Status: Active Bilateral carotid artery disease (447.9, I77.9) Status: Active PVD (peripheral vascular disease) (443.9, I73.9) Status: Active Chronic renal insufficiency (585.9, N18.9) Status: Active Medications Name Dates Details Baby Aspirin 81 MG CHEW Active Plavix 75 MG Oral Tablet * Refills: 0 Active Labetalol HCl - 100 MG Oral Tablet * Refills: 0 Active Lisinopril 20 MG Oral Tablet * Refills: 0 Active Glimepiride TABS * Refills: 0 Active Zetia 10 MG Oral Tablet * Refills: 0 Active Allergies and Adverse Reactions Name Dates Details No Known Allergies (Allergy) Status: Active Procedures Procedure Dates Details CTA Neck [id number] Date: 01-Sep-2017 Immunization Name Dates Details Immunizations not documented Social History Name Dates Details - Status: Name Dates Details Former smoker Vital Signs Date Test Result Details [id number] BP Systolic 190 mm[Hg] Status: BP Diastolic 90 mm[Hg] Status: Height 62 in Status: Weight 104 lb Status: Body Mass Index Calculated 19.02 kg/m2 Status: Body Surface Area Calculated 1.45 m2 Status: Results Date Description Value Details Results not documented Plan of Care Name Dates Details Planned Observations Planned Goals not documented Interventions Provided Labs/Procedures/Imaging* CTA Neck [id number]; To Be Done: 01 Sep 2017 Instructions Name Dates Details Instructions not documented Encounters Appointment; DR BENITO KERN Encounter Diagnosis: Problem not documented On: 11-Aug-2017 9:00 Appointment; ALEXA OLIVER M.D. Encounter Diagnosis: Problem not documented On: 11-Aug-2017 11:00
--- NOTE | 2018-04-05 10:18 | NUR ---
NIMA DE AL FUENTE, ENP IN ROOM ASSESSING PT AT THIS TIME
[2018-04-05] MEDS ORDERED: HYDRALAZINE HCL 20 MG/ML VIAL IV ONE (11:00)
--- NOTE | 2018-04-05 11:15 | NUR ---
LT ELBOW SKIN TEAR CLEANED WITH SALINE AND DRESSING APPLIED TO SITE AT THIS TIME
--- NOTE | 2018-04-05 11:20 | NUR ---
HYDRALAZINE 10 MG BEING ADMINISTERED AT THIS TIME PER ORDERS FROM NIMA DE LA FUENTE ENP
[2018-04-05 11:30] LABS: BASOPHILS # (AUTO) 0.1 (0.0-0.1); BASOPHILS % 0.4 % (0.0-1.0); EOSINOPHILS % 0.1 % (0.0-6.0); HEMATOCRIT 28.8 % (34.2-44.1); HEMOGLOBIN 9.4 g/dL (12.0-16.0); LYMPHOCYTES # (AUTO) 0.9 (1.0-3.2); LYMPHOCYTES % 7.2 % (18.0-39.1); MEAN CORPUSCULAR HEMOGLOBIN 28.1 pg (28-32); MEAN CORPUSCULAR HGB CONC 32.6 g/dL (31-35); MONOCYTES # (AUTO) 0.7 (0.2-0.8); MONOCYTES % 5.6 % (4.4-11.3); NEUTROPHILS # (AUTO) 10.6 (2.1-6.9); NEUTROPHILS % 86.3 % (38.7-80.0); PLATELET COUNT 255 x10e3/uL (140-360); RED BLOOD COUNT 3.35 x10e6/uL (3.6-5.1); RED CELL DISTRIBUTION WIDTH 14.6 % (11.7-14.4)
[2018-04-05 11:42] LABS: INR 0.93; PROTHROMBIN TIME 13.3 seconds (11.9-14.5)
[2018-04-05 11:43] LABS: PARTIAL THROMBOPLASTIN TIME 34.3 seconds (23.8-35.5)
[2018-04-05 11:50] LABS: ALBUMIN 3.2 g/dL (3.5-5.0); ALBUMIN/GLOBULIN RATIO 0.9 (0.8-2.0); ANION GAP 16.1 mmol/L (8-16); CALCIUM 8.9 mg/dL (8.4-10.2); CREATININE, SERUM 2.04 mg/dL (0.57-1.11); POTASSIUM 4.1 mmol/L (3.5-5.1)
[2018-04-05 11:56] LABS: CREATINE KINASE MB 3.4 ng/mL (0-5.0)
[2018-04-05 12:18] LABS: BILIRUBIN,URINE NEGATIVE (NEGATIVE); CLARITY,URINE CLEAR (CLEAR); COLOR,URINE YELLOW (YELLOW); EPITHELIAL CELLS,URINE RARE /LPF; KETONES,URINE NEGATIVE (NEGATIVE); LEUKOCYTE ESTERASE ,URINE NEGATIVE (NEGATIVE); NITRITE,URINE NEGATIVE (NEGATIVE); PROTEIN,URINE DIPSTICK 3+ (NEGATIVE); RBC,URINE 0-5 /HPF (0-5); URINE UROBILINOGEN 0.2 mg/dL (0.2 - 1); WBC,URINE (MAN) 0-5 /HPF (0-5)
--- NOTE | 2018-04-05 12:35 | NUR ---
LABETALOL 20 MG BEING ADMINISTERED ORDERED BY NIMA DE LA FUENTE ENP FOR HYPERTENSION AT THIS TIME
--- NOTE | 2018-04-05 12:44 | Diagnostic Imaging Report ---
Exams: Head and cervical spine CTs without contrast Indication: Fall out of wheelchair and headache Comparisons: Head CTs 02/10/2016 and 09/29/2017 Technique: Axial images were obtained from the brain and cervical spine. Coronal and sagittal images reconstructed from the axial data. Dose modulation, iterative reconstruction, and/or weight based adjustment of the mA/kV was utilized to reduce the radiation dose to as low as reasonably achievable. Intravenous contrast: None Findings: Head CT: Scalp/skull: No fractures, blastic or lytic lesions. A 1 cm bone-like focus, inseparable from the inner table of the right frontal bone, is presumed to be an incidental exostosis. Brain sulci: Moderately prominent. Ventricles: Moderate compensatory dilatation. No acute hydrocephalus. Extra-axial spaces: No masses. No fluid collections. Parenchyma: Diffuse, confluent hypodensities throughout the supratentorial white matter are nonspecific small vessel ischemic changes. No masses, hemorrhage, acute or chronic cortical vascular insults. Sellar/suprasellar region: No abnormalities. Craniocervical junction: Patent foramen magnum. No Chiari one malformation. Cervical spine CT: Airway: Patent. Fractures: None. Soft tissues: No gross abnormalities. Atlantoaxial articulation: Moderately degenerated Alignment: Normal lordosis. No scoliosis. Cervicomedullary junction: Mildly stenotic foramen magnum due to anterior and posterior degenerative changes associated with the C1-C2 articulation (series 500, image 20). Vertebrae: Bones are diffusely demineralized No infection or neoplasm. Degenerative changes: Severely degenerated discs from C4 to C7. The facets are degenerated and/or fused throughout the cervical region. Chronic compression fractures at C5 and C6 (30-50% height loss) result in mild kyphosis at C5-6. Foraminal stenosis, moderate left at C3-4, severe bilaterally at C4-5, C5-6, mild at C6-7 is due to facet and uncovertebral arthrosis. Superimposed spinal canal stenosis, mild at C5-6 with moderate at C6-7 due to disc osteophyte complexes. Incidental findings: Atherosclerotic calcifications in the subclavian arteries, left common carotid and brachiocephalic arteries and in the carotid bulbs and siphons. Senile punctate calcifications in the globes. Nonspecific debris within the external auditory canals. IMPRESSION: Head CT: No acute abnormalities. No changes when compared to the most recent head CT on 09/29/2018 Persistent chronic findings: 1. Moderate generalized cerebral volume loss. 2. Diffuse supratentorial white matter microvascular ischemic changes. Cervical spine CT: 1. No acute abnormalities. No acute fractures or subluxations. 2. Cannot adequately evaluate for ligament, spinal cord and or vascular abnormalities. 3. Degenerative stenosis at the foramen magnum, in the canal and foramina as described. Degenerative changes of the disks from C4 to C7 associated with chronic compression fractures at C5 and C6. A preliminary report was provided to Dr. Miller by Dr. Escoto via telephone on 04/05/2018 12:40 PM. Signed by: Dr. Sam Gaming M.D. on 04/05/2018 1:55 PM
--- NOTE | 2018-04-05 12:52 | Diagnostic Imaging Report ---
EXAMINATION: RIBS UNILAT W/CXR INDICATION: ^r.o rib fx left side ^[id number] ^[id number] ^Y COMPARISON: 05/17/2017 FINDINGS: TUBES and LINES: None. LUNGS: Lungs are well inflated. Left midlung linear opacification, likely atelectasis. There is no evidence of pneumonia or pulmonary edema. PLEURA: No pleural effusion or pneumothorax. HEART AND MEDIASTINUM: The cardiac silhouette is enlarged. Calcification of aortic arch. BONES AND SOFT TISSUES: Questionable nondisplaced fracture of the anterior left fifth rib. Soft tissues are unremarkable. UPPER ABDOMEN: No free air under the diaphragm. IMPRESSION: Questionable nondisplaced fracture of the anterior left fifth rib, seen only on one view. Signed by: Dr. Steven Mcgowan MD on 04/05/2018 12:49 PM
--- NOTE | 2018-04-05 12:53 | Diagnostic Imaging Report ---
SHOULDER LEFT COMPLETE - 2 views HISTORY: Pain COMPARISON: None available. FINDINGS: Bones: No acute displaced fracture. Osseous alignment is within normal limits. Joints: The joint spaces are well-maintained. Soft tissues: The soft tissues appear unremarkable. IMPRESSION: No acute fracture or dislocation of the left shoulder. Signed by: Dr. Steven Mcgowan MD on 04/05/2018 12:49 PM
[2018-04-05] MEDS ORDERED: LABETALOL HCL 5 MG/ML 20ML VIAL IV ONE (13:00)
--- NOTE | 2018-04-05 13:04 | Diagnostic Imaging Report ---
ELBOW LEFT COMPLETE - 3 views HISTORY: Pain COMPARISON: None available. FINDINGS: Bones: No acute displaced fracture. Osseous alignment is within normal limits. Joints: The joint spaces are well-maintained. Soft tissues: The soft tissues appear unremarkable. IMPRESSION: No acute fracture or dislocation of the left elbow. Signed by: Dr. Steven Mcgowan MD on 04/05/2018 1:01 PM
--- NOTE | 2018-04-05 13:15 | NUR ---
LT ELBOW WOUND CLEANED WITH HIBICLENS AND SALINE, DRESSING APPLIED, INSTRUCTED PT AND MONICAETER ON CARE OF DRESSING, VERBALIZED UNDERSTANDING
--- NOTE | 2018-04-05 13:25 | NUR ---
HYDRALAZINE 25 MG PO ADMINISTERED AT THIS TIME PER ORDERS FROM NIMA DE LA FUENTE ENP FOR HYPERTENSION
[2018-04-05] MEDS ORDERED: HYDRALAZINE HCL 25 MG TAB PO ONE (13:30)
--- NOTE | 2018-04-05 13:40 | NUR ---
DRESSING CHANGED AT THIS TIME PER DAUGHTERS REQUEST, APPLIED TEGADERM WELL TO MAINTAIN PRESSURE TO SITE
--- NOTE | 2018-04-05 13:50 | NUR ---
BLOOD PRESSURE REMAINS ELEVATED; HOA GAR AND DR. LINDSEY AWARE OF THIS, NO NEW ORDERS RECEIVED; DAUGHTER VERBALIZES THAT PT USUALLY HAS ISSUES WITH NORMALIZING BLOOD PRESSURE IN HOSPITAL ENVIRONMENT, BUT DOES RETURN TO HER BASELINE ONCE AT HOME AND AFTER TAKING PRESCRIBED HOME MEDICAITONS, AND HOA ALSO MADE AWARE OF THIS.
[2018-04-05 13:59] VITALS: BP 200/75
== END 2018-04-05 14:30 | disposition home or self-care (01) ==
LOC: ER 10:00
DX: S22.31XA Fracture of one rib, right side, initial encounter for closed fracture (principal); S40.012A Contusion of left shoulder, initial encounter; S50.02XA Contusion of left elbow, initial encounter; S40.212A Abrasion of left shoulder, initial encounter; S50.312A Abrasion of left elbow, initial encounter; W07.XXXA Fall from chair, initial encounter; I10 Essential (primary) hypertension; Y92.008 Other place in unspecified non-institutional (private) residence as the place of occurrence of the external cause; E11.9 Type 2 diabetes mellitus without complications; N18.9 Chronic kidney disease, unspecified
CPT/HCPCS: 36415; 70450; 71101; 72125; 73030; 73080; 80053; 81001; 82550; 82553; 83735; 83880; 84484; 85025; 85610; 85730; 87086; 93005; 99284; J0360; J3490